=== PATIENT | male | born 1935 | race Caucasian/White ===

== ENCOUNTER 2018-09-15 19:25 | Inpatient (IN) ==
[2018-09-15] MEDS ORDERED: Vancomycin Inj 1,000 MG in Sodium Chlor 0.9% Inj 250 ML IV.SIG ONE ×2 (19:43→23:00)
[2018-09-15] MEDS ORDERED: Piperacil/Tazo 4.5 GM Premix 4.5 GM/100 ML BAG IV.SIG ONE (19:43)
[2018-09-15] MEDS ORDERED: Acetaminophen 325 MG Tablet PO ONE (19:43)
[2018-09-15] MEDS ORDERED: Sod Chloride 0.9% Inj 1,000 ML IV.SIG SCH (19:45)
[2018-09-15] MEDS ORDERED: LORazepam 1 MG Tablet PO ONE (19:57)
[2018-09-15] MEDS ORDERED: diazePAM 2 MG Tablet PO ONE ×2 (19:59→20:36)
--- NOTE | 2018-09-15 20:43 | XR ---
EXAM DATE: 09/15/2018 8:36 PM EST AGE/SEX: 89 years / Male INDICATIONS: Fever. CLINICAL DATA: This is the patient's initial encounter. Patient reports that signs and symptoms have been present for 1 day and indicates a pain score of Nonresponsive. MEDICAL/SURGICAL HISTORY: Non-responsive. Non-responsive. COMPARISON: No prior exams available for comparison. FINDINGS: Ill-defined partially consolidative opacity in the lower lateral left lung causes loss of delineation of a portion of the lateral left hemidiaphragm. The right lung is clear. The heart is normal in size . No evidence of pneumothorax. High riding shoulders bilaterally. CONCLUSION: Probable infiltrate in the lower lateral left lung. Electronically signed by: Isai Elliott MD 09/15/2018 8:42 PM EST
--- NOTE | 2018-09-15 20:44 | ED ---
HPI General Chief complaint: Respiratory Symptoms Stated complaint: Resp Time Seen by Provider: 09/15/18 19:38 Source: family and EMS Mode of arrival: EMS History of Present Illness HPI narrative: Patient is an 83 year old male who comes in due to AMS and hypoxia. Per EMS, patient was at home and found to be hypoxic with an oxygen saturation in the 70s. EMS placed him on CPAP and gave him 2 duonebs. He was hypotensive with EMS and was given a liter of fluids. Patient is awake and alert and has no complaints, however he looks uncomfortable. Patient's says he has had the basal cell carcinoma to his face for the past year. She says that it suddenly got bigger. She says [facility] advised that he go to [facility], but he does not want to go because it is too far away. says that he has been hallucinating, seeing things that are not actually there. Related Data Home Medications Medication Instructions Recorded Confirmed amlodipine 5 mg PO DAILY 09/15/18 09/15/18 donepezil 10 mg PO DAILY 09/15/18 09/15/18 lisinopril-hydrochlorothiazide 1 tab PO DAILY 09/15/18 09/15/18 memantine 7 mg PO BID 09/15/18 09/15/18 Allergies Allergy/AdvReac Type Severity Reaction Status Date / Time No Known Allergies Allergy Verified 09/15/18 19:43 Review of Systems ROS Unobtainable ROS Unobtainable: unobtainable due to mental status PMFSH Social History Social History Second Hand Smoke Exposure: No Smoking Status: Unknown if ever smoked How Often Do You Have a Drink Containing Alcohol: Never Recent Travel in [facility] within the Last 8 Weeks: No Recent Out of Country Travel within the Last 8 Weeks: No Immunization History Tetanus Immunization: Unsure Exam Narrative Exam Narrative: GENERAL: Awake and alert, in moderate respiratory distress. SKIN: Large necrotic mass to the left cheek. HEAD: Atraumatic. Normocephalic. EYES: Pupils equal and round. No scleral icterus. ENT: Mucous membranes pink and moist. NECK: Trachea midline. No JVD. CARDIOVASCULAR: Regular rate and rhythm. No murmur appreciated. RESPIRATORY: No accessory muscle use. Clear to auscultation. Breath sounds equal bilaterally. GASTROINTESTINAL: Abdomen soft, non-tender, nondistended. MUSCULOSKELETAL: No obvious deformities. No clubbing. No cyanosis. Bilateral lower extremity edema. NEUROLOGICAL: Awake and alert. No obvious cranial nerve deficits. Motor grossly within normal limits. Course Initial Documented Vital Signs Temperature 101 F H 09/15/18 19:31 Pulse Rate 113 H 09/15/18 19:31 Respiratory Rate 30 H 09/15/18 19:31 Blood Pressure 135/63 09/15/18 19:31 Pulse Oximetry 87 L 09/15/18 19:31 Last Documented Vital Signs Temperature 99 F 09/15/18 20:01 Pulse Rate 105 H 09/15/18 22:58 Respiratory Rate 34 H 09/15/18 22:58 Blood Pressure 133/60 09/15/18 22:58 Pulse Oximetry 97 09/15/18 22:58 Critical Care Time Critical Care Time: Yes Total Critical Care Time: 40 Attestation: Aggregate critical care time was 40 minutes. Time to perform other separately billable procedures was not included in the critical care time. My time did not include minutes spent treating any other patients simultaneously or on activities that did not directly contribute to the patient's treatment. The services I provided to this patient were to treat and/or prevent clinically significant deterioration that could result in: serious illness or I provided critical care services requiring my management, as noted below: Chart data review, documentation time, medication orders and management, vital sign assessments/reviewing monitor data, ordering and reviewing lab tests, ordering and interpreting/reviewing x-rays and diagnostic studies, care of the patient and discussion of the patient with the admitting physicians. Medical Decision Making [facility] Narrative Medical decision making narrative: Patient is an 83-year-old male who comes in due to altered mental status and respiratory distress. patient appears in moderate respiratory distress on arrival, he is also very anxious and tremulous. IV established, labs sent. Patient given IV fluids. Patient originally continued on BiPAP, however decision made to trial the patient on a nasal cannula. Patient did well on nasal cannula and appears more comfortable. He is maintaining his oxygen saturation above 96%. Given Zosyn and vancomycin. Given 4 mg of Valium to help with anxiety. Labs show no elevated white blood cell count. Lactic acid is elevated. Chest x -ray shows pneumonia. Patient will be admitted to ICU for further management. Medical Screen Exam Complete: Yes Emergency Medical Condition: Yes Differential Diagnosis Differential Diagnosis: Sepsis versus pneumonia versus metastatic cancer Medical Records Medical records reviewed: Yes I reviewed the patient's medical records. Lab Data Lab results reviewed: Yes I reviewed the patient's lab results. Result diagrams: 09/15/18 19:47 09/15/18 19:47 Lab Results 09/15/18 09/15/18 09/15/18 Range/Units 19:47 19:47 19:47 WBC 17.1 H (4.0-11.0) th/mm3 RBC 3.55 L (4.50-5.90) mil/mm3 Hgb 10.7 L (13.0-17.0) gm/dL Hct 32.7 L (39.0-51.0) % MCV 92.0 (80.0-100.0) fL MCH 30.0 (27.0-34.0) pg MCHC 32.6 (32.0-36.0) % RDW 12.7 (11.6-17.2) % Plt Count 269 (150-450) th/mm3 MPV 7.4 (7.0-11.0) fL Neut % (Auto) 86.9 H (16.0-70.0) % Lymph % (Auto) 5.8 L (9.0-44.0) % Mower % (Auto) 6.1 (0.0-8.0) % Eos % (Auto) 0.8 (0.0-4.0) % Baso % (Auto) 0.4 (0.0-2.0) % Neut # (Auto) 14.8 H (1.8-7.7) th/mm3 Lymph # (Auto) 1.0 (1.0-4.8) th/mm3 Mower # (Auto) 1.0 H (0.0-0.9) th/mm3 Eos # (Auto) 0.1 (0.0-0.4) th/mm3 Baso # (Auto) 0.1 (0.0-0.2) th/mm3 WBC Differential . Differential Comment Auto diff final PT 11.7 H (9.8-11.6) sec INR 1.2 Ratio APTT 23.8 (23.4-31.7) sec Sodium 143 (136-145) meq/L Potassium 3.9 (3.5-5.1) meq/L Chloride 107 (98-107) meq/L Carbon Dioxide 29.4 (21.0-32.0) meq/L Anion Gap 7 (5-15) meq/L BUN 43 H (7-18) mg/dL Creatinine 1.21 (0.60-1.30) mg/dL Estimated GFR 52 L (>89) mL/min Random Glucose 85 (74-106) mg/dL Lactic Acid (0.4-2.0) mmol/L Calcium 11.3 H (8.5-10.1) mg/dL Magnesium 2.0 (1.5-2.5) mg/dL Total Bilirubin 0.8 (0.2-1.0) mg/dL AST 22 (15-37) U/L ALT 24 (12-78) U/L Alkaline Phosphatase 62 (45-117) U/L Total Creatine Kinase 112 (39-308) U/L CK-MB (CK-2) 2.6 (0.5-3.6) ng/mL Troponin I Less than 0.02 L (0.02-0.05) ng/mL Total Protein 5.5 L (6.4-8.2) g/dL Albumin 2.3 L (3.4-5.0) g/dL Urine Color (Yellw/Straw) Urine Clarity (Clear) Urine pH (5.0-8.5) Ur Specific [place] (1.002-1.035) Urine Protein (Neg-Trace) mg/dL Urine Glucose (UA) (Negative) mg/dL Urine Ketones (Negative) mg/dL Urine Occult Blood (Negative) Urine Nitrate (Negative) Urine Bilirubin (Negative) Urine Urobilinogen (Less than 2) mg/dL Ur Leukocyte Esterase (Negative) Urine WBC (0-5) /hpf Urine Mucus (Occasional) /lpf Micro UA Comment Ur Microscopic Review Urine Culture Comments 09/15/18 09/15/18 Range/Units 19:47 19:55 WBC (4.0-11.0) th/mm3 RBC (4.50-5.90) mil/mm3 Hgb (13.0-17.0) gm/dL Hct (39.0-51.0) % MCV (80.0-100.0) fL MCH (27.0-34.0) pg MCHC (32.0-36.0) % RDW (11.6-17.2) % Plt Count (150-450) th/mm3 MPV (7.0-11.0) fL Neut % (Auto) (16.0-70.0) % Lymph % (Auto) (9.0-44.0) % Mower % (Auto) (0.0-8.0) % Eos % (Auto) (0.0-4.0) % Baso % (Auto) (0.0-2.0) % Neut # (Auto) (1.8-7.7) th/mm3 Lymph # (Auto) (1.0-4.8) th/mm3 Mower # (Auto) (0.0-0.9) th/mm3 Eos # (Auto) (0.0-0.4) th/mm3 Baso # (Auto) (0.0-0.2) th/mm3 WBC Differential Differential Comment PT (9.8-11.6) sec INR Ratio APTT (23.4-31.7) sec Sodium (136-145) meq/L Potassium (3.5-5.1) meq/L Chloride (98-107) meq/L Carbon Dioxide (21.0-32.0) meq/L Anion Gap (5-15) meq/L BUN (7-18) mg/dL Creatinine (0.60-1.30) mg/dL Estimated GFR (>89) mL/min Random Glucose (74-106) mg/dL Lactic Acid 2.7 H (0.4-2.0) mmol/L Calcium (8.5-10.1) mg/dL Magnesium (1.5-2.5) mg/dL Total Bilirubin (0.2-1.0) mg/dL AST (15-37) U/L ALT (12-78) U/L Alkaline Phosphatase (45-117) U/L Total Creatine Kinase (39-308) U/L CK-MB (CK-2) (0.5-3.6) ng/mL Troponin I (0.02-0.05) ng/mL Total Protein (6.4-8.2) g/dL Albumin (3.4-5.0) g/dL Urine Color Yellow (Yellw/Straw) Urine Clarity Hazy H (Clear) Urine pH 6.0 (5.0-8.5) Ur Specific [place] 1.015 (1.002-1.035) Urine Protein Negative (Neg-Trace) mg/dL Urine Glucose (UA) Negative (Negative) mg/dL Urine Ketones Negative (Negative) mg/dL Urine Occult Blood Negative (Negative) Urine Nitrate Negative (Negative) Urine Bilirubin Negative (Negative) Urine Urobilinogen 2.0 H (Less than 2) mg/dL Ur Leukocyte Esterase Negative (Negative) Urine WBC 2 (0-5) /hpf Urine Mucus Few H (Occasional) /lpf Micro UA Comment Cath-culture not ind Ur Microscopic Review Not Reportable Urine Culture Comments Cath-cult not ind Imaging Data Radiologist's impression: Chest X-Ray 09/15/18 19:43 CONCLUSION: Probable infiltrate in the lower lateral left lung. Chest CTA 09/15/18 20:35 CONCLUSION: 1. The study is negative for central pulmonary embolism. 2. Bilateral lower lobe consolidative infiltrates. Head CT 09/15/18 20:35 CONCLUSION: 1. No acute findings in the brain. 2. Large irregular margin soft tissue mass in the left face measuring in excess of 10 cm. . ECG Data EKG Prior to Arrival: No Attestation: I personally reviewed and interpreted this ECG as follows: Interpretation: ECG shows sinus tachycardia at a rate of 100, no ST elevation, large artifact Discharge Plan Discharge Disposition Patient Disposition: 30 Still Patient Discharge Condition Condition: Stable Discharge Details Diagnosis: Sepsis, Pneumonia Physicians Team ED Provider: Yeny Doyle Primary Care Provider: UNKNOWN, Attending Provider: José Luis Jones Status ED Status: Admitted Patient
[2018-09-15 21:04] LABS: Baso # (Auto) 0.1 th/mm3 (0.0-0.2); Baso % (Auto) 0.4 % (0.0-2.0); Eos # (Auto) 0.1 th/mm3 (0.0-0.4); Eos % (Auto) 0.8 % (0.0-4.0); Hematocrit 32.7 % (39.0-51.0); Hemoglobin 10.7 gm/dL (13.0-17.0); Lymph % (Auto) 5.8 % (9.0-44.0); Mean Corpuscular HGB Conc 32.6 % (32.0-36.0); Mean Platelet Volume 7.4 fL (7.0-11.0); Mono % (Auto) 6.1 % (0.0-8.0); Neut # (Auto) 14.8 th/mm3 (1.8-7.7); Neut % (Auto) 86.9 % (16.0-70.0); Platelet Count 269 th/mm3 (150-450); Red Blood Count 3.55 mil/mm3 (4.50-5.90); Red Cell Distribution Width 12.7 % (11.6-17.2); White Blood Count 17.1 th/mm3 (4.0-11.0)
[2018-09-15 21:17] LABS: Bilirubin,Urine Negative (Negative); Clarity,Urine Hazy (Clear); Color,Urine Yellow (Yellw/Straw); Glucose,Urine (UA) Negative (Negative); Leukocyte Esterase,Urine Negative (Negative); Mucus,Urine Few /lpf (Occasional); Nitrite,Urine Negative (Negative); Specific Gravity,Urine 1.015 (1.002-1.035)
[2018-09-15 21:18] LABS: Albumin 2.3 g/dL (3.4-5.0); Aspartate Aminotransferase 22 U/L (15-37); Blood Urea Nitrogen 43 mg/dL (7-18); Calcium 11.3 mg/dL (8.5-10.1); Carbon Dioxide 29.4 meq/L (21.0-32.0); Glomerular Filtration Rate 52 mL/min (>89); Glucose,Random 85 mg/dL (74-106)
[2018-09-15 21:19] LABS: Activated Partial Thrombo Time 23.8 sec (23.4-31.7); INR 1.2 Ratio; Prothrombin Time 11.7 sec (9.8-11.6)
[2018-09-15 21:20] LABS: Alanine Aminotransferase 24 U/L (12-78)
[2018-09-15 22:31] LABS: Anion Gap 7 meq/L (5-15); Chloride 107 meq/L (98-107); Potassium 3.9 meq/L (3.5-5.1); Sodium 143 meq/L (136-145)
[2018-09-15 22:32] LABS: Alkaline Phosphatase 62 U/L (45-117); Creatine Kinase 112 U/L (39-308); Total Protein 5.5 g/dL (6.4-8.2)
--- NOTE | 2018-09-15 22:39 | CT ---
EXAM DATE: 09/15/2018 10:34 PM EST AGE/SEX: 89 years / Male INDICATIONS: Altered mental status. Growth on left side of face. CLINICAL DATA: This is the patient's initial encounter. Patient reports that signs and symptoms have been present for 1 day and indicates a pain score of Nonresponsive. MEDICAL/SURGICAL HISTORY: Non-responsive. Non-responsive. RADIATION DOSE: 45.23 CTDI (mGy) COMPARISON: No prior exams available for comparison. TECHNIQUE: CT of the head without contrast. Using automated exposure control and adjustment of the mA and/or kV according to patient size, radiation dose was kept as low as reasonably achievable to ob tain optimal diagnostic quality images. DICOM format image data is available electronically for revi ew and comparison. FINDINGS: Cerebrum: The ventricles are normal for age. No evidence of midline shift, mass lesion, hemorrhage or acute infarction. No extraaxial fluid collections are seen. Posterior Fossa: The cerebellum and brainstem are intact. The 4th ventricle is midline. The cerebe llopontine angle is unremarkable. Extracranial: There is a large left facial mass superficial to the mandible and extending to the ext ernal ear which measures 10.9 cm in AP dimension and 4.4 cm in width. This surrounds the external aco ustic meatus but does not extend into the external acoustic meatus. No internal calcification. The la teral margins are fungating and irregular. Skull: The calvaria is intact. No evidence of skull fracture. CONCLUSION: 1. No acute findings in the brain. 2. Large irregular margin soft tissue mass in the left face measuring in excess of 10 cm. . Electronically signed by: Isai Elliott MD 09/15/2018 10:38 PM EST
[2018-09-15 22:47] LABS: Creatine Kinase MB 2.6 ng/mL (0.5-3.6)
--- NOTE | 2018-09-15 23:00 | CT ---
EXAM DATE: 09/15/2018 10:53 PM EST AGE/SEX: 89 years / Male INDICATIONS: Shortness of breath. CLINICAL DATA: This is the patient's initial encounter. Patient reports that signs and symptoms have been present for 1 day and indicates a pain score of Nonresponsive. MEDICAL/SURGICAL HISTORY: Non-responsive. Non-responsive. RADIATION DOSE: 21.05 CTDI (mGy) COMPARISON: No prior exams available for comparison. TECHNIQUE: Volumetric scanning was performed using a multi-row detector CT scanner during bolus infu elizabeth of 74 ml Omnipaque 350 (iohexol) nonionic water-soluble contrast as a single exam dose. The víctor a was post processed with a variety of visualization algorithms including full volume maximum intensi ty projection and sliding thin slab reformation. Using automated exposure control and adjustment of t he mA and/or kV according to patient size, radiation dose was kept as low as reasonably achievable to obtain optimal diagnostic quality images. DICOM format image data is available electronically for r eview and comparison. FINDINGS: Patient motion and metallic lines cause image degradation. The study is still diagnostic f or the central pulmonary arteries. Pulmonary Arteries: No filling defects are seen in the central and first branch pulmonary arteries. The second branch vessels are nondiagnostic due to the artifact. The left and right pulmonary arteri es are normal in diameter. Lung: Multi segmental consolidation in the lower lungs bilaterally. Effusion: None. Mediastinum: No evidence of mediastinal or hilar adenopathy. Coronary artery calcifications. Other: The axilla is unremarkable. CONCLUSION: 1. The study is negative for central pulmonary embolism. 2. Bilateral lower lobe consolidative infiltrates. Electronically signed by: Isai Elliott MD 09/15/2018 10:59 PM EST
[2018-09-15] MEDS ORDERED: Temazepam 15 MG Capsule PO PRN (23:12)
[2018-09-15] MEDS ORDERED: Acetaminophen 325 MG Tablet PO PRN (23:12)
[2018-09-15] MEDS ORDERED: Bisacodyl 10 MG Supp RECTAL PRN (23:12)
[2018-09-15] MEDS ORDERED: Vancomycin Consult Pharmacy OTHER PRN (23:17)
--- NOTE | 2018-09-15 23:19 | P.HPCC ---
History of Present Illness Primary Care Physician: UNKNOWN History of Present Illness: 83 year old male who comes in due to AMS and hypoxia. Per EMS, patient was at home and found to be hypoxic with an oxygen saturation in the 70s. EMS placed him on CPAP and gave him 2 duonebs. He was hypotensive with EMS and was given a liter of i.v. fluids. Patient's says he has had the basal cell carcinoma to his face for the past year. She says that it suddenly got bigger. She says [facility] advised that he go to [facility], but he does not want to go because it is too far away. says that he has been hallucinating, seeing things that are not actually there. Inpatient Certification: I certify that the inpatient services were ordered in accordance with Medicare regulations governing the order. This includes certification that hospital inpatient services are reasonable and necessary and in the case of services not specified as inpatient-only under 42 CFR 419.22(n), that they are appropriately provided as inpatient services in accordance to with the 2-midnight benchmark under 43 CFR 412.3(e) Estimated Total Length of Stay (Days): 5 Plans for Post Hospital Care: Not yet determined Review of Systems unobtainable due to mental condition PMFSH - History History Provided By: Cork Slabs Sawyer / EMT - Tobacco History Second Hand Smoke Exposure: No Smoking Status: Unknown if ever smoked - Alcohol History How Often Do You Have a Drink Containing Alcohol: Never - Travel History Recent Travel in the [place] Within the Last 8 Weeks: No Recent Travel Out of the Country Within the Last 8 Weeks: No - Immunization History Tetanus Immunization: Unsure Medications and Allergies Active Medications: Active Medications Acetaminophen (Tylenol) 650 mg PO Q6H PRN PRN Reason: PAIN 1-10 AND/OR FEVER >101F Al Hydroxide/Mg Hydroxide (Milk Of Magnfay Liq) 30 ml PO Q12H PRN PRN Reason: Mild Constipation Albuterol (Duoneb Neb (Prn)) 1 ampul NEB Q2HR NEB PRN PRN Reason: WHEEZING Amlodipine Besylate (Norvasc) 5 mg PO DAILY DAREN Bisacodyl (Dulcolax Supp) 10 mg RECTAL DAILY PRN PRN Reason: SEVERE CONSITIPATION Chlorhexidine Gluconate (Chlorhexidine 2% Cloth) 3 pack TOPICAL DAILY@0400 [facility] Stop: 09/21/18 03:59 Chlorhexidine Gluconate (Chlorhexidine 2% Cloth) 3 pack TOPICAL DAILY@0400 PRN PRN Reason: Extra cloth needed Stop: 09/21/18 03:59 Donepezil HCl (Aricept) 10 mg PO DAILY [facility] Famotidine (Pepcid Pf Inj) 20 mg IV.PUSH Q12HR [facility] Heparin Sodium (Porcine) (Heparin Inj) 5,000 units SQ Q8H [facility] Hydrochlorothiazide (Hydrodiuril) 25 mg PO DAILY [facility] Hydromorphone HCl (Dilaudid Pf Inj) 1 mg IV.PUSH Q4H PRN PRN Reason: PAIN SCALE 6 TO 10 Sodium Chloride (Ns Inj) 1,000 mls @ 0 mls/hr IV.SIG .Q0M [facility] Last Admin: 09/15/18 20:02 Dose: 2,400 mls/hr Sodium Chloride (Ns Inj) 1,000 mls @ 184 mls/hr IV.CONT .Q5H27M [facility] Lactulose (Lactulose Liq) 30 ml PO DAILY PRN PRN Reason: SEVERE CONSITIPATION Lisinopril (Prinivil) 20 mg PO DAILY [facility] Ondansetron HCl (Zofran Inj) 4 mg IV.PUSH Q6H PRN PRN Reason: NAUSEA OR VOMITING Pt Own Memantine 7 (Mg Xr Tablet) 1 each PO BID [facility] Senna/Docusate Sodium (Ashlyn-Colace) 1 tab PO BID [facility] Sennosides (Senokot) 17.2 mg PO Q12H PRN PRN Reason: Moderate Constipation Sodium Chloride (Ns Flush) 2 ml IV.FLUSH BID [facility] Sodium Chloride (Ns Flush) 2 ml IV.FLUSH PRN PRN PRN Reason: FLUSH AFTER USING IV ACCESS Temazepam (Restoril) 15 mg PO HS PRN PRN Reason: INSOMNIA Allergies Allergy/AdvReac Type Severity Reaction Status Date / Time No Known Allergies Allergy Verified 09/15/18 19:43 Home Medications Medication Instructions Recorded Confirmed Type amlodipine 5 mg PO DAILY 09/15/18 09/15/18 History donepezil 10 mg PO DAILY 09/15/18 09/15/18 History lisinopril-hydrochlorothiazide 1 tab PO DAILY 09/15/18 09/15/18 History memantine 7 mg PO BID 09/15/18 09/15/18 History Results - Labs CBC & Chem 7: 09/15/18 19:47 09/15/18 19:47 Labs: Short CBC 09/15/18 Range/Units 19:47 WBC 17.1 H (4.0-11.0) th/mm3 Hgb 10.7 L (13.0-17.0) gm/dL Hct 32.7 L (39.0-51.0) % Plt Count 269 (150-450) th/mm3 BMP 09/15/18 19:47 Sodium 143 Potassium 3.9 Chloride 107 Carbon Dioxide 29.4 BUN 43 H Creatinine 1.21 Calcium 11.3 H Cardiac Enzymes 09/15/18 Range/Units 19:47 Total Creatine Kinase 112 (39-308) U/L CK-MB (CK-2) 2.6 (0.5-3.6) ng/mL Troponin I Less than 0.02 L (0.02-0.05) ng/mL Liver Function 09/15/18 Range/Units 19:47 Total Bilirubin 0.8 (0.2-1.0) mg/dL AST 22 (15-37) U/L ALT 24 (12-78) U/L Alkaline Phosphatase 62 (45-117) U/L Albumin 2.3 L (3.4-5.0) g/dL Urine 09/15/18 Range/Units 19:55 Urine Color Yellow (Yellw/Straw) Urine Clarity Hazy H (Clear) Urine pH 6.0 (5.0-8.5) Ur Specific [place] 1.015 (1.002-1.035) Urine Protein Negative (Neg-Trace) mg/dL Urine Glucose (UA) Negative (Negative) mg/dL - Imaging Impressions Chest X-Ray 09/15/18 19:43 CONCLUSION: Probable infiltrate in the lower lateral left lung. Chest CTA 09/15/18 20:35 CONCLUSION: 1. The study is negative for central pulmonary embolism. 2. Bilateral lower lobe consolidative infiltrates. Head CT 09/15/18 20:35 CONCLUSION: 1. No acute findings in the brain. 2. Large irregular margin soft tissue mass in the left face measuring in excess of 10 cm. . Exam Vital signs: Vital Signs 09/15/18 19:31 09/15/18 19:35 09/15/18 19:38 Temperature 101 F H Pulse Rate 113 H 104 H Respiratory Rate 30 H 30 H Blood Pressure 135/63 Pulse Oximetry 87 L 96 99 09/15/18 19:50 09/15/18 20:01 09/15/18 20:59 Temperature 99 F Pulse Rate 94 H 104 H Respiratory Rate 28 H 32 H Blood Pressure 139/64 Pulse Oximetry 97 09/15/18 21:00 09/15/18 22:58 Temperature Pulse Rate 105 H Respiratory Rate 34 H Blood Pressure 133/60 Pulse Oximetry 98 97 Intake & Output 09/15/18 09/15/18 09/16/18 06:59 18:59 06:59 Intake Total 100 / 100 Balance 100 / 100 Weight 79.379 kg Intake: IV 100 / 100 Zosyn 4.5 GM Premix 4.5 gm In 100 / 100 100 ml @ 200 mls/hr IV.SIG ONCE ONE Rx#:[id number] - Constitutional mild distress - Routine HEENT Exam Head: Present: facial swelling Eye: Present: PERRL ENT: Present: mucous membranes moist Comments: Large irregular margin soft tissue mass in the left face measuring in excess of 10 cm. - Routine Neck Exam Present: supple, full ROM. Absent: JVD, carotid bruit - Routine Respiratory Exam Present: rhonchi, crackles. Absent: accessory muscle use, stridor, wheezes - Routine Cardiovascular Exam Present: RRR, S1, S2 - Routine Abdominal Exam Present: soft, normoactive bowel sounds. Absent: tenderness, distended - Routine Extremities Exam Absent: cyanosis, clubbing, edema - Routine Skin Exam Present: intact. Absent: cyanosis, erythema - Routine Neurological Exam Present: altered mental status Septic Shock Reassessment Septic shock perfusion: reassessment completed Caprini VTE Risk Assessment Caprini VTE Risk Assessment: Moderate/High Risk (score >= 2) Caprini Risk Assessment Model: Point Value = 1 Point Value = 2 Point Value = 3 Point Value = 5 Age 41-60 Minor surgery BMI > 25 kg/m2 Swollen legs Varicose veins or History of unexplained or recurrent spontaneous Oral contraceptives or hormone replacement Sepsis (< 1 month) Serious lung disease, including pneumonia (< 1 month) Abnormal pulmonary function Acute myocardial infarction Congestive heart failure (< 1 month) History of inflammatory bowel disease Medical patient at bed rest Age 61-74 Arthroscopic surgery Major open surgery (> 45 min) Laparoscopic surgery (> 45 min) Malignancy Confined to bed (> 72 hours) Immobilizing plaster cast Central venous access Age >= 75 History of VTE Family history of VTE Factor V Leiden Prothrombin [id number] Lupus anticoagulant Anticardiolipin antibodies Elevated serum homocysteine Heparin-induced thrombocytopenia Other congenital or acquired thrombophilia Stroke (< 1 month) Elective arthroplasty Hip, pelvis, or leg fracture Acute spinal cord injury (< 1 month) Prophylaxis Regimen: Total Risk Factor Score Risk Level Prophylaxis Regimen 0-1 Low Early ambulation 2 Moderate Order ONE of the following: *Sequential Compression Device (SCD) *Heparin 5000 units SQ BID 3-4 Higher Order ONE of the following medications: *Heparin 5000 units SQ TID *Enoxaparin/Lovenox 40 mg SQ daily (WT < 150 kg, CrCl > 30 mL/min) *Enoxaparin/Lovenox 30 mg SQ daily (WT < 150 kg, CrCl > 10-29 mL/min) *Enoxaparin/Lovenox 30 mg SQ BID (WT < 150 kg, CrCl > 30 mL/min) AND/OR *Sequential Compression Device (SCD) 5 or more Highest Order ONE of the following medications: *Heparin 5000 units SQ TID (Preferred with Epidurals) *Enoxaparin/Lovenox 40 mg SQ daily (WT < 150 kg, CrCl > 30 mL/min) *Enoxaparin/Lovenox 30 mg SQ daily (WT < 150 kg, CrCl > 10-29 mL/min) *Enoxaparin/Lovenox 30 mg SQ BID (WT < 150 kg, CrCl > 30 mL/min) AND *Sequential Compression Device (SCD) Assessment and Plan - Assessment and Plan Plan: Respiratory failure -Pneumonia on the CT -CTA negative for PE -Broad-spectrum antibiotic -De-escalate per sensitivity and cultures -DuoNeb's as needed Hypertension -Norvasc -Hydrochlorothiazide -Lisinopril Basal cell carcinoma -Supportive care Dementia -Aricept -Memantine DVT GI prophylaxis -Teds SCDs -Subcu heparin -Pepcid Level 2
[2018-09-16] MEDS: Heparin - SQ 10,000 UNITS/ML Vial SQ SCH ×4 (00:14→21:48)
[2018-09-16] MEDS: HYDROmorphone PF Inj 1 MG/ML Ampul IV.PUSH PRN (01:48)
[2018-09-16] MEDS: Sod Chloride 0.9% Inj 1,000 ML IV.CONT SCH ×5 (01:48→15:51)
[2018-09-16] MEDS: Piperacil/Tazo 4.5 GM Premix 4.5 GM/100 ML BAG IV.SIG SCH ×4 (01:48→21:49)
[2018-09-16] MEDS: Chlorhexidine Gluconate 2% 1 Pack (2 Cloths) TOPICAL SCH (03:50)
[2018-09-16] MEDS ORDERED: Chlorhexidine Gluconate 2% 1 Pack (2 Cloths) TOPICAL PRN (04:00)
[2018-09-16 05:00] LABS: Baso # (Auto) 0.1 th/mm3 (0.0-0.2); Baso % (Auto) 0.6 % (0.0-2.0); Eos % (Auto) 0.2 % (0.0-4.0); Hematocrit 27.5 % (39.0-51.0); Hemoglobin 9.4 gm/dL (13.0-17.0); Lymph # (Auto) 0.6 th/mm3 (1.0-4.8); Lymph % (Auto) 3.3 % (9.0-44.0); Mean Corpuscular HGB Conc 34.1 % (32.0-36.0); Mean Corpuscular Hemoglobin 31.3 pg (27.0-34.0); Mean Corpuscular Volume 91.9 fL (80.0-100.0); Mean Platelet Volume 6.7 fL (7.0-11.0); Mono # (Auto) 0.8 th/mm3 (0.0-0.9); Mono % (Auto) 4.3 % (0.0-8.0); Neut # (Auto) 16.3 th/mm3 (1.8-7.7); Neut % (Auto) 91.6 % (16.0-70.0); Platelet Count 220 th/mm3 (150-450); Red Blood Count 2.99 mil/mm3 (4.50-5.90); White Blood Count 17.8 th/mm3 (4.0-11.0)
[2018-09-16 05:07] LABS: Activated Partial Thrombo Time 40.6 sec (23.4-31.7); INR 1.2 Ratio; Prothrombin Time 12.6 sec (9.8-11.6)
[2018-09-16 05:34] LABS: Alanine Aminotransferase 21 U/L (12-78); Albumin 1.8 g/dL (3.4-5.0); Alkaline Phosphatase 47 U/L (45-117); Anion Gap 8 meq/L (5-15); Aspartate Aminotransferase 23 U/L (15-37); Blood Urea Nitrogen 40 mg/dL (7-18); Calcium 9.9 mg/dL (8.5-10.1); Carbon Dioxide 25.4 meq/L (21.0-32.0); Chloride 111 meq/L (98-107); Glomerular Filtration Rate 61 mL/min (>89); Glucose,Random 83 mg/dL (74-106); Phosphorus 2.7 mg/dL (2.5-4.9); Potassium 3.5 meq/L (3.5-5.1); Sodium 144 meq/L (136-145); Total Protein 4.6 g/dL (6.4-8.2)
--- NOTE | 2018-09-16 08:39 | P.PNCC ---
Subjective Subjective Remarks/Hospital Course: 83 year old male who comes in due to AMS and hypoxia. Per EMS, patient was at home and found to be hypoxic with an oxygen saturation in the 70s. EMS placed him on CPAP and gave him 2 duonebs. He was hypotensive with EMS and was given a liter of i.v. fluids. Patient's says he has had the basal cell carcinoma to his face for the past year. She says that it suddenly got bigger. She says [facility] advised that he go to [facility], but he does not want to go because it is too far away. says that he has been hallucinating, seeing things that are not actually there. SUBJECTIVE: 09/16: Patient is agitated this a.m. He received lorazepam overnight. Leukocytosis persists. CT brain revealed no acute intracranial findings. Soft tissue mass left side of face which is currently fungating/purulent drainage. Currently on piperacillin/tazobactam and vancomycin. Objective Vital Signs / I&O: Vital Signs 09/15/18 19:31 09/15/18 19:35 09/15/18 19:38 Temperature 101 F H Pulse Rate 113 H 104 H Respiratory Rate 30 H 30 H Blood Pressure 135/63 Pulse Oximetry 87 L 96 99 09/15/18 19:50 09/15/18 20:01 09/15/18 20:59 Temperature 99 F Pulse Rate 94 H 104 H Respiratory Rate 28 H 32 H Blood Pressure 139/64 Pulse Oximetry 97 09/15/18 21:00 09/15/18 22:58 09/16/18 00:00 Temperature Pulse Rate 105 H 106 H Respiratory Rate 34 H 38 H Blood Pressure 133/60 130/68 Pulse Oximetry 98 97 97 09/16/18 02:00 09/16/18 03:00 09/16/18 04:00 Temperature 99.7 F H 98.5 F Pulse Rate 92 H 64 85 Respiratory Rate 34 H 32 H 32 H Blood Pressure 116/58 L 119/57 L 105/55 L Pulse Oximetry 97 97 98 09/16/18 06:48 09/16/18 06:49 09/16/18 07:00 Temperature Pulse Rate 82 101 H 149 H Respiratory Rate 37 H 45 H 44 H Blood Pressure 124/62 152/91 H Pulse Oximetry 97 85 L 81 L 09/16/18 07:16 Temperature Pulse Rate 101 H Respiratory Rate 40 H Blood Pressure 203/121 H Pulse Oximetry 90 L Intake & Output 09/15/18 09/16/18 09/16/18 18:59 06:59 18:59 Intake Total 1100 / 1100 100 / 100 Output Total 475 / 475 Balance 625 / 625 100 / 100 Weight 72.1 kg Intake: IV 1100 / 1100 100 / 100 NS Inj 1,000 ML @ 184 mls/hr IV 1000 / 1000 .CONT .Q5H27M [facility] Rx#:[id number] Zosyn 4.5 GM Premix 4.5 gm In 100 / 100 100 / 100 100 ml @ 200 mls/hr IV.SIG Q6H [facility] Rx#:[id number] Output: Urine Amount (Catheter) 475 / 475 Indwelling Urethral Catheter 475 / 475 Other: Date of Last Bowel Movement 09/16/18 # Bowel Movements 1 # Incontinent Bowel Movements 1 Weight On Admission 73.1 kg Result Diagrams: 09/16/18 04:50 09/16/18 04:50 Imaging: Chest X-Ray 09/15/18 19:43 CONCLUSION: Probable infiltrate in the lower lateral left lung. Chest CTA 09/15/18 20:35 CONCLUSION: 1. The study is negative for central pulmonary embolism. 2. Bilateral lower lobe consolidative infiltrates. Head CT 09/15/18 20:35 CONCLUSION: 1. No acute findings in the brain. 2. Large irregular margin soft tissue mass in the left face measuring in excess of 10 cm. . Objective Remarks: GENERAL: This is a 83-year-old male currently resting in bed in mild distress SKIN: Warm and dry. Large fungating mass on left side of face HEAD: Atraumatic. Normocephalic. EYES: Pupils equal and round. No scleral icterus. No injection or drainage. ENT: No nasal bleeding or discharge. Mucous membranes pink and moist. NECK: Trachea midline. No JVD. CARDIOVASCULAR: rrr. S1, S2. No S4.. RESPIRATORY: Few coarse rhonchorous breath sounds at bases. GASTROINTESTINAL: Abdomen soft, non-tender, nondistended. Hepatic and splenic margins not palpable. MUSCULOSKELETAL: Extremities without significant peripheral edema. No obvious deformities. NEUROLOGICAL: Awake and alert. No obvious cranial nerve deficits. Motor grossly within normal limits. Five out of 5 muscle strength in the arms and legs. Normal speech. Assessment and Plan - Assessment and Plan Plan: Neuro/Psych: Dementia disorder NOS Continue memantine 7 mg twice daily and donepezil 10 mg daily for dementia Acetaminophen 650 mg by mouth p.o. every 6 hours as needed fever/pain 1-10 Hydromorphone 1 mg IV every 4 hours as needed breakthrough pain CT brain revealed no acute intracranial findings. Large 10 cm left mass of her face. CV: Sinus tachycardia Lactic acidosis resolved Essential hypertension Home medications are lisinopril 20 mg daily and hydrochlorothiazide 25 mg daily and amlodipine 5 mg daily. Lisinopril and hydrochlorothiazide currently on hold in light of hypotension. Discontinue IV fluids As needed labetalol/hydralazine for hypertension Resp: Community acquired pneumonia Nasal cannula to maintain saturations greater than or equal to 92% Incentive spirometry while awake Head of bed at 30 degrees Albuterol/ipratropium aerosols every 4 hours with albuterol aerosols every 2 hours as needed dyspnea Lung hyperinflation protocol EzPap with aerosols every [address] pulmonary angiogram revealed no central pulmonary embolus. Bilateral lower lobe infiltrates. GI: N.p.o. status. Swallow evaluation pending Pantoprazole for GI prophylaxis Docusate sodium/senna 1 tablet twice daily for bowel regimen : Straight catheterization as needed Endo: Sliding scale insulin Accu-Cheks to maintain euglycemia every 6 hours/low regimen aspart insulin Check TSH Renal: Creatinine currently within normal limits Monitor urine Accurate I's and O's Heme: Leukocytosis Basal cell carcinoma of the face Monitor CBC daily. Follow trends. Check coags Care evaluate face ID: Community acquired pneumonia Possibly infected basal cell carcinoma Vancomycin, piperacillin/tazobactam day #2 Blood cultures x2 pending Sputum/UA, influenza A/B, urine Legionella pneumococcal antigen pending MSK: Physical therapy evaluate and treat FEN: Replace electrolytes as clinically indicated per ICU electrolyte protocol Access -Utilize peripheral IV. Central line if indicated Prophylaxis -GI -pantoprazole -DVT-SCD/heparin subcu Level 2 follow-up. Stable from critical care medicine standpoint. Assign care to hospitalist in a.m. 09/17.
[2018-09-16] MEDS ORDERED: Famotidine PF Inj 20 MG/2 ML Vial IV.PUSH SCH (09:00)
[2018-09-16] MEDS ORDERED: MEMANTINE 7 MG PO SCH (09:00)
[2018-09-16] MEDS ORDERED: hydroCHLOROthiazide 25 MG Tablet PO SCH (09:00)
[2018-09-16] MEDS ORDERED: Lisinopril 20 MG Tablet PO SCH (09:00)
[2018-09-16] MEDS ORDERED: amLODIPine 5 MG Tablet PO SCH ×2 (09:00→16:51)
[2018-09-16] MEDS ORDERED: Potassium Chlor 20 mEq Premix 20 MEQ/100 ML PIGGYBACK IV.SIG PRN ×2 (09:02)
[2018-09-16] MEDS ORDERED: Magnesium Oxide 400 MG Tablet PO PRN (09:02)
[2018-09-16] MEDS ORDERED: Magnesium Sulfate Inj 4 GM in Sodium Chlor 0.9% Inj 92 ML IV.SIG PRN (09:02)
[2018-09-16] MEDS ORDERED: Potassium Phosphate Inj 30 MMOL in Sodium Chlor 0.9% Inj 250 ML IV.SIG PRN (09:02)
[2018-09-16] MEDS ORDERED: Potassium Chloride 25 MEQ Effervescent Tablet PO PRN (09:02)
[2018-09-16] MEDS ORDERED: Potassium Phosphate 500 MG Soluble Tablet PO PRN ×2 (09:02)
[2018-09-16] MEDS ORDERED: Potassium Chlor 40 mEq Premix 40 MEQ/100 ML PIGGYBACK IV.SIG PRN ×2 (09:02)
[2018-09-16] MEDS ORDERED: Magnesium Sulfate Inj 2 GM in Sodium Chlor 0.9% Inj 96 ML IV.SIG PRN (09:02)
[2018-09-16] MEDS ORDERED: Sodium Phosphate Inj 30 MMOL in Sodium Chlor 0.9% Inj 250 ML IV.SIG PRN (09:02)
[2018-09-16] MEDS ORDERED: Dextrose 50% in Water 50 ML Vial IV.PUSH PRN (09:03)
[2018-09-16] MEDS ORDERED: Labetalol HCl Inj 100 MG/20 ML Vial IV.PUSH PRN (09:05)
[2018-09-16] MEDS ORDERED: hydrALAZINE HCl Inj 20 MG/ML Vial IV.PUSH PRN (09:05)
[2018-09-16] MEDS: Senna/Docusate Sodium 8.6/50 MG Tablet PO SCH ×2 (09:31→21:49)
[2018-09-16] MEDS: Insulin NovoLOG Aspart Correctional Sugar Inj SQ SCH ×2 (12:49→17:32)
[2018-09-16 13:59] LABS: Bacteria,Urine Rare /hpf; Bilirubin,Urine Negative (Negative); Clarity,Urine Cloudy (Clear); Color,Urine Yellow (Yellw/Straw); Glucose,Urine (UA) Negative (Negative); Leukocyte Esterase,Urine Large (Negative); Mucus,Urine Few /lpf (Occasional); Nitrite,Urine Negative (Negative); Specific Gravity,Urine 1.027 (1.002-1.035); Squamous Epithelial Cell,Urine 1 /hpf (0-5); Uric Acid Crystals,Urine Occasional /hpf
--- NOTE | 2018-09-16 14:30 | ECG ---
Date Performed: 09/15/2018 Time Performed: 19:41:12 PTAGE: 89 years EKG: SINUS TACHYCARDIA NONSPECIFIC T-WAVE ABNORMALITY ABNORMAL RHYTHM ECG NO PREVIOUS TRACING DOCTOR: Luis Felipe Castro Interpretating Date/Time 09/16/2018 14:30:07
[2018-09-16] MEDS: Pantoprazole Inj 40 MG Vial IV.PUSH SCH (17:32)
[2018-09-16] MEDS: Dextrose 5%/NaCl 0.45% Inj 1,000 ML IV.CONT SCH (17:40)
[2018-09-16] MEDS ORDERED: Gadobutrol PF 7.5 MMOL/7.5 ML Vial (for RAD) IV.SIG ONE (18:48)
--- NOTE | 2018-09-16 19:29 | MR ---
EXAM DATE: 09/16/2018 7:12 PM EST AGE/SEX: 83 years / Male INDICATIONS: Basal cell carcinoma. CLINICAL DATA: This is the patient's initial encounter. Patient reports that signs and symptoms have been present for 1 day and indicates a pain score of 0/10. MEDICAL/SURGICAL HISTORY: Hypertension. . Leg surgery. COMPARISON: No prior exams available for comparison. TECHNIQUE: Multi-weighted, multi-axial MR images of the facial soft tissue before and after the admi nistration of 7 ml Gadavist (gadobutrol) contrast as a single exam dose. FINDINGS: There is a large infiltrating mass in the left face which measures 11 cm in AP dimension, 11.1 cm in superior/inferior extent and is characterized by T1 prolongation and intermediate signal on T2. On th e postcontrast images, there is a heterogeneous pattern of moderate enhancement. The mass extends int o the subcutaneous tissues of the left maxillary region back into the pinna of the left ear. There i s evidence of deep soft tissue invasion around the the mandibular condyle and ramus with enhancing ti ssue surrounding the ramus and on the deep side of the mandible. Enhancing tissue is also seen within the external acoustic canal. There is also invasion into the parotid gland. No invasion of the temporal bone. The zygomatic arch appears intact. There is questionable extension into the medial pterygoid muscle with some loss of delineation of the muscle fascicles and muscle fito ma. CONCLUSION: 1. Large fungating tumor in the left face with evidence of deep soft tissue extension around the man dibular condyle and ramus, involvement of the left parotid, extension into the external acoustic santos l, and possible involvement of the medial pterygoid muscle. Electronically signed by: Isai Elliott MD 09/16/2018 7:27 PM EST
[2018-09-17] MEDS: Vancomycin Inj 1,250 MG in Sodium Chlor 0.9% Inj 250 ML IV.SIG SCH ×2 (01:00→23:54)
[2018-09-17] MEDS: Insulin NovoLOG Aspart Correctional Sugar Inj SQ SCH ×4 (01:00→17:21)
[2018-09-17] MEDS: HYDROmorphone PF Inj 1 MG/ML Ampul IV.PUSH PRN (02:14)
[2018-09-17] MEDS: Piperacil/Tazo 4.5 GM Premix 4.5 GM/100 ML BAG IV.SIG SCH ×4 (02:15→19:38)
[2018-09-17 04:07] LABS: Baso # (Auto) 0.1 th/mm3 (0.0-0.2); Baso % (Auto) 0.5 % (0.0-2.0); Eos # (Auto) 0.1 th/mm3 (0.0-0.4); Eos % (Auto) 0.7 % (0.0-4.0); Hematocrit 28.9 % (39.0-51.0); Hemoglobin 9.7 gm/dL (13.0-17.0); Lymph # (Auto) 0.9 th/mm3 (1.0-4.8); Mean Corpuscular HGB Conc 33.7 % (32.0-36.0); Mean Corpuscular Volume 92.1 fL (80.0-100.0); Mean Platelet Volume 6.7 fL (7.0-11.0); Mono % (Auto) 5.6 % (0.0-8.0); Neut % (Auto) 88.2 % (16.0-70.0); Platelet Count 215 th/mm3 (150-450); Red Blood Count 3.14 mil/mm3 (4.50-5.90); Red Cell Distribution Width 13.1 % (11.6-17.2)
[2018-09-17 04:18] LABS: Alanine Aminotransferase 23 U/L (12-78); Albumin 1.8 g/dL (3.4-5.0); Anion Gap 7 meq/L (5-15); Aspartate Aminotransferase 29 U/L (15-37); Blood Urea Nitrogen 31 mg/dL (7-18); Carbon Dioxide 25.5 meq/L (21.0-32.0); Chloride 113 meq/L (98-107); Glomerular Filtration Rate 72 mL/min (>89); Glucose,Random 90 mg/dL (74-106); Phosphorus 2.4 mg/dL (2.5-4.9); Potassium 3.3 meq/L (3.5-5.1); Sodium 145 meq/L (136-145)
[2018-09-17 04:19] LABS: Alkaline Phosphatase 45 U/L (45-117); Total Protein 4.8 g/dL (6.4-8.2)
[2018-09-17 04:22] LABS: INR 1.2 Ratio
[2018-09-17] MEDS: Chlorhexidine Gluconate 2% 1 Pack (2 Cloths) TOPICAL SCH (05:32)
[2018-09-17] MEDS: Heparin - SQ 10,000 UNITS/ML Vial SQ SCH ×3 (05:33→21:57)
--- NOTE | 2018-09-17 07:42 | P.PNIM ---
Subjective Interval history: f/u; pneumonia in no acute distress. at times agitated. afebrile. d/w the RN and RT at the bedside. Physical Exam Vital signs: Vital Signs 09/16/18 08:00 09/16/18 08:09 09/16/18 09:00 Temperature 98.5 F Pulse Rate 111 H 118 H 99 H Respiratory Rate 38 H 56 H 102 H Blood Pressure 149/70 H 146/64 H Pulse Oximetry 91 L 88 L 98 09/16/18 10:00 09/16/18 11:00 09/16/18 11:01 Temperature Pulse Rate 92 H 63 60 Respiratory Rate 36 H 52 H 27 H Blood Pressure 145/85 H 115/55 L Pulse Oximetry 97 94 L 94 L 09/16/18 11:02 09/16/18 11:05 09/16/18 12:00 Temperature Pulse Rate 73 77 Respiratory Rate 22 73 H Blood Pressure Pulse Oximetry 97 94 L 09/16/18 12:01 09/16/18 13:00 09/16/18 13:01 Temperature 98.4 F Pulse Rate 69 56 L 54 L Respiratory Rate 87 H 93 H 96 H Blood Pressure 142/62 H 112/55 L Pulse Oximetry 94 L 97 98 09/16/18 14:00 09/16/18 15:00 09/16/18 15:56 Temperature Pulse Rate 79 86 84 Respiratory Rate 107 H 91 H 24 Blood Pressure 126/58 L 128/59 L Pulse Oximetry 93 L 97 09/16/18 16:00 09/16/18 16:01 09/16/18 17:00 Temperature 98.5 F Pulse Rate 74 79 79 Respiratory Rate 162 H 182 H 85 H Blood Pressure 155/65 H Pulse Oximetry 87 L 85 L 87 L 09/16/18 17:01 09/16/18 18:00 09/16/18 18:01 Temperature Pulse Rate 85 64 82 Respiratory Rate 88 H 102 H 86 H Blood Pressure 137/61 116/55 L Pulse Oximetry 86 L 100 97 09/16/18 19:41 09/16/18 20:00 09/16/18 22:00 Temperature 98.7 F Pulse Rate 84 83 83 Respiratory Rate 20 18 Blood Pressure 137/63 Pulse Oximetry 96 100 09/17/18 00:00 09/17/18 00:27 09/17/18 02:00 Temperature 98.5 F Pulse Rate 73 54 L 80 Respiratory Rate 17 20 Blood Pressure 132/63 Pulse Oximetry 100 09/17/18 02:44 09/17/18 03:41 09/17/18 04:00 Temperature 98.7 F Pulse Rate 50 L 50 L Respiratory Rate 16 20 16 Blood Pressure 120/60 Pulse Oximetry 100 09/17/18 06:00 09/17/18 07:27 09/17/18 07:34 Temperature Pulse Rate 48 L 49 L Respiratory Rate 24 Blood Pressure Pulse Oximetry 97 Intake & Output 09/16/18 09/17/18 09/17/18 18:59 06:59 18:59 Intake Total 3274 / 3274 462.5 / 462.5 Output Total 1000 / 1000 1100 / 1100 Balance 2274 / 2274 -637.5 / -637.5 Weight 72.4 kg Intake: IV 3274 / 3274 462.5 / 462.5 NS Inj 1,000 ML @ 184 mls/hr IV 2474 / 2474 .CONT .Q5H27M [facility] Rx#:[id number] Zosyn 4.5 GM Premix 4.5 gm In 300 / 300 200 / 200 100 ml @ 200 mls/hr IV.SIG Q6H [facility] Rx#:[id number] Vancomycin Inj 1,000 MG In NS 250 / 250 Inj 250 ML @ 250 mls/hr IV.SIG ONCE ONE Rx#:[id number] Vancomycin Inj 1,250 MG In NS 262.5 / 262.5 Inj 250 ML @ 250 mls/hr IV.SIG Q24H [facility] Rx#:[id number] Output: Urine Amount (Catheter) 1000 / 1000 1100 / 1100 Indwelling Urethral Catheter 1000 / 1000 1100 / 1100 Other: Date of Last Bowel Movement 09/16/18 09/17/18 # Bowel Movements 1 1 # Incontinent Bowel Movements 1 - Constitutional no acute distress - Routine Respiratory Exam Present: CTA bilaterally - Routine Cardiovascular Exam Present: RRR - Routine Abdominal Exam Present: soft - Routine Extremities Exam Comments: bilateral pedal edema. - Routine Skin Exam Present: wounds (noted on the left face.) - Routine Neurological Exam Present: alert - Urinary Catheter Management Indwelling Urethral Catheter Cath placed during this visit: yes Reason for continuing: Hourly intake/output Insertion date: 09/15/18 Insertion time: 20:02 Results - Labs CBC & Chem 7: 09/17/18 03:51 09/17/18 03:51 Laboratory Results - last 24 hr 09/16/18 09/16/18 09/16/18 11:35 12:12 17:28 WBC RBC Hgb Hct MCV MCH MCHC RDW Plt Count MPV Neut % (Auto) Lymph % (Auto) [place] % (Auto) Eos % (Auto) Baso % (Auto) Neut # (Auto) Lymph # (Auto) [place] # (Auto) Eos # (Auto) Baso # (Auto) WBC Differential Differential Comment PT INR APTT Sodium Potassium Chloride Carbon Dioxide Anion Gap BUN Creatinine Estimated GFR POC Glucose 83 64 L Random Glucose Lactic Acid Calcium Phosphorus Magnesium Total Bilirubin AST ALT Alkaline Phosphatase Total Protein Albumin TSH Urine Color Yellow Urine Clarity Cloudy H Urine pH 5.0 Ur Specific [place] 1.027 Urine Protein 30 H Urine Glucose (UA) Negative Urine Ketones Negative Urine Occult Blood Large H Urine Nitrate Negative Urine Bilirubin Negative Urine Urobilinogen Less than 2 Ur Leukocyte Esterase Large H Urine RBC Urine WBC 71 H Urine WBC Clumps Occasional H Ur Squamous Epith Cells 1 Uric Acid Crystals Occasional H Urine Bacteria Rare H Urine Mucus Few H Urine Yeast Occasional H Micro UA Comment Cath-culture ind Ur Microscopic Review Not Reportable Urine Culture Comments Cath-cult indicated 09/16/18 09/17/18 09/17/18 17:39 00:58 03:51 WBC 17.0 H RBC 3.14 L Hgb 9.7 L Hct 28.9 L MCV 92.1 MCH 31.0 MCHC 33.7 RDW 13.1 Plt Count 215 MPV 6.7 L Neut % (Auto) 88.2 H Lymph % (Auto) 5.0 L [place] % (Auto) 5.6 Eos % (Auto) 0.7 Baso % (Auto) 0.5 Neut # (Auto) 15.0 H Lymph # (Auto) 0.9 L [place] # (Auto) 1.0 H Eos # (Auto) 0.1 Baso # (Auto) 0.1 WBC Differential . Differential Comment Auto diff final PT INR APTT Sodium Potassium Chloride Carbon Dioxide Anion Gap BUN Creatinine Estimated GFR POC Glucose 202 H 98 Random Glucose Lactic Acid Calcium Phosphorus Magnesium Total Bilirubin AST ALT Alkaline Phosphatase Total Protein Albumin TSH Urine Color Urine Clarity Urine pH Ur Specific [place] Urine Protein Urine Glucose (UA) Urine Ketones Urine Occult Blood Urine Nitrate Urine Bilirubin Urine Urobilinogen Ur Leukocyte Esterase Urine RBC Urine WBC Urine WBC Clumps Ur Squamous Epith Cells Uric Acid Crystals Urine Bacteria Urine Mucus Urine Yeast Micro UA Comment Ur Microscopic Review Urine Culture Comments 09/17/18 09/17/18 09/17/18 03:51 03:51 03:51 WBC RBC Hgb Hct MCV MCH MCHC RDW Plt Count MPV Neut % (Auto) Lymph % (Auto) [place] % (Auto) Eos % (Auto) Baso % (Auto) Neut # (Auto) Lymph # (Auto) [place] # (Auto) Eos # (Auto) Baso # (Auto) WBC Differential Differential Comment PT 12.0 H INR 1.2 APTT 32.0 H D Sodium 145 Potassium 3.3 L Chloride 113 H Carbon Dioxide 25.5 Anion Gap 7 BUN 31 H Creatinine 0.99 Estimated GFR 72 L POC Glucose Random Glucose 90 Lactic Acid 1.2 Calcium 10.0 Phosphorus 2.4 L Magnesium 2.0 Total Bilirubin 0.9 AST 29 ALT 23 Alkaline Phosphatase 45 Total Protein 4.8 L Albumin 1.8 L TSH Urine Color Urine Clarity Urine pH Ur Specific [place] Urine Protein Urine Glucose (UA) Urine Ketones Urine Occult Blood Urine Nitrate Urine Bilirubin Urine Urobilinogen Ur Leukocyte Esterase Urine RBC Urine WBC Urine WBC Clumps Ur Squamous Epith Cells Uric Acid Crystals Urine Bacteria Urine Mucus Urine Yeast Micro UA Comment Ur Microscopic Review Urine Culture Comments 09/17/18 09/17/18 03:51 05:30 WBC RBC Hgb Hct MCV MCH MCHC RDW Plt Count MPV Neut % (Auto) Lymph % (Auto) [place] % (Auto) Eos % (Auto) Baso % (Auto) Neut # (Auto) Lymph # (Auto) [place] # (Auto) Eos # (Auto) Baso # (Auto) WBC Differential Differential Comment PT INR APTT Sodium Potassium Chloride Carbon Dioxide Anion Gap BUN Creatinine Estimated GFR POC Glucose 118 H Random Glucose Lactic Acid Calcium Phosphorus Magnesium Total Bilirubin AST ALT Alkaline Phosphatase Total Protein Albumin TSH 1.570 Urine Color Urine Clarity Urine pH Ur Specific [place] Urine Protein Urine Glucose (UA) Urine Ketones Urine Occult Blood Urine Nitrate Urine Bilirubin Urine Urobilinogen Ur Leukocyte Esterase Urine RBC Urine WBC Urine WBC Clumps Ur Squamous Epith Cells Uric Acid Crystals Urine Bacteria Urine Mucus Urine Yeast Micro UA Comment Ur Microscopic Review Urine Culture Comments Microbiology 09/16/18 11:35 Sputum - Nasal Tracheal Aspirate Gram Stain - Final 09/16/18 11:35 Nasal Wash Influenza Types A,B Antigen - Final Negative for FLU A and B antigen Infection due to influenza A or B cannot be ruled out since the antigen present in the sample may be below the detection limit of the test. 09/15/18 19:48 Blood - Peripheral Aerobic Blood Culture - Preliminary No growth in 1 day 09/15/18 19:48 Blood - Peripheral Anaerobic Blood Culture - Preliminary No growth in 1 day 09/15/18 19:43 Blood - Peripheral Aerobic Blood Culture - Preliminary No growth in 1 day 09/15/18 19:43 Blood - Peripheral Anaerobic Blood Culture - Preliminary No growth in 1 day - Imaging Impressions Face MRI 09/16/18 00:00 CONCLUSION: 1. 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 Assessment and Plan - Plan A/P Community acquired pneumonia Possibly infected basal cell carcinoma possible UTI Nasal cannula to maintain saturations greater than or equal to 92% Incentive spirometry while awake Albuterol/ipratropium aerosols every 4 hours with albuterol aerosols every 2 hours as needed dyspnea continue IV antibiotics ID consulted. CT pulmonary angiogram revealed no central pulmonary embolus. Bilateral lower lobe infiltrates. Dementia disorder NOS Continue memantine 7 mg twice daily and donepezil 10 mg daily for dementia Acetaminophen 650 mg by mouth p.o. every 6 hours as needed fever/pain 1-10 Hydromorphone 1 mg IV every 4 hours as needed breakthrough pain CT brain revealed no acute intracranial findings. Large 10 cm left mass of her face. Sinus tachycardia Lactic acidosis resolved Essential hypertension Home medications are lisinopril 20 mg daily and hydrochlorothiazide 25 mg daily and amlodipine 5 mg daily. Lisinopril and hydrochlorothiazide currently on hold in light of hypotension. As needed labetalol/hydralazine for hypertension Leukocytosis Basal cell carcinoma of the face MRI face with large left face tumor with evidence of deep soft tissue extension Monitor CBC daily. Follow trends. Physical therapy evaluate and treat. will consult Palliative care. Discussed Condition With: the RN and RT.
[2018-09-17] MEDS: Senna/Docusate Sodium 8.6/50 MG Tablet PO SCH ×2 (09:35→21:56)
--- NOTE | 2018-09-17 11:11 | P.CONID ---
History of Present Illness Service: Infectious disease Consult date: 09/17/18 Requesting Physician: Mckinley Velasco Reason for Consult: Evaluate patient with pneumonia, and a fungating mass on the left face Primary Care Provider: UNKNOWN History of Present Illness: Patient seen and examined. Records reviewed. Patient is an 83-year-old male, brought into the hospital for evaluation of shortness of breath. He was also quite lethargic, and at times was hallucinating.. When EMS was called he was hypoxic, he was placed on CPAP and was given a nebulizer treatment he was also initially hypotensive and he was given a liter of fluid with improvement in his hemodynamics. Patient has been having moist cough and was bringing up grayish color phlegm. He has not had any vomiting, and apparently does not have any problem with swallowing. There is been no mention of any fever or chills. Evaluation in the ED showed bilateral basilar consolidation. He is febrile, and his white count is elevated. He was noted to have this large fungating mass on his left face. According to the the patient has had it for more than a year and it started out small. She has been trying to convince him to go to the doctor but refused, since he said it was not hurting and not bothering him. Patient was hospitalized at [facility] about a month ago for evaluation of that mass. There was apparently a biopsy done, and they were advised to go to [facility] for determination of further treatment. According to the to have an appointment on October 04. Infectious disease consultation has been requested to assist with evaluation of patient with pneumonia. Patient has a very moist cough. He is on nasal O2. His temperatures are better. Review of Systems Constitutional: Reports chills, Reports fever(s) Eyes: Denies discharge, Denies dry eyes Ears, Nose, Mouth, and Throat: Denies difficulty swallowing, Denies nasal discharge, Denies sore throat Cardiovascular: Reports shortness of breath, Denies chest pain Respiratory: Reports chest congestion, Reports cough, Reports shortness of breath, Denies coughing up blood Gastrointestinal: Denies abdominal pain, Denies nausea, Denies pain with swallowing, Denies vomiting Genitourinary: Denies difficulty urinating, Denies painful urination Skin/Breast: Reports other (Large mass on left side of face) Neurologic: Reports confusion, Reports other (hallucinations) [facility] - History History 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 - Tobacco History Second Hand Smoke Exposure: No Smoking Status: Unknown if ever smoked - Alcohol History How Often Do You Have a Drink Containing Alcohol: Never - Substance Use History Substance History: No History of Abuse - Travel History Recent Travel in the [place] Within the Last 8 Weeks: No Recent Travel Out of the Country Within the Last 8 Weeks: No - Immunization History Tetanus Immunization: Unsure Medications and Allergies Active Medications: Active Medications Acetaminophen (Tylenol) 650 mg PO Q6H PRN PRN Reason: PAIN 1-5 AND/OR FEVER >101F Al Hydroxide/Mg Hydroxide (Milk Of Danyelle Liq) 30 ml PO Q12H PRN PRN Reason: Mild Constipation Albuterol (Duoneb Neb (Maren)) 1 ampul NEB Q4HR NEB [facility] Last Admin: 09/17/18 07:25 Dose: 1 ampul Albuterol (Albuterol Neb (Prn)) 2.5 mg NEB Q2HR NEB PRN PRN Reason: DYSPNEA Amlodipine Besylate (Norvasc) 10 mg PO DAILY [facility] Bisacodyl (Dulcolax Supp) 10 mg RECTAL DAILY PRN PRN Reason: SEVERE CONSITIPATION Chlorhexidine Gluconate (Chlorhexidine 2% Cloth) 3 pack TOPICAL DAILY@0400 [facility] Stop: 09/21/18 03:59 Last Admin: 09/17/18 05:32 Dose: 3 pack Chlorhexidine Gluconate (Chlorhexidine 2% Cloth) 3 pack TOPICAL DAILY@0400 PRN PRN Reason: Extra cloth needed Stop: 09/21/18 03:59 Dextrose (D50w Vial) 50 ml IV.PUSH UNSCH PRN PRN Reason: PER HYPOGLYCEMIA PROTOCOL Last Admin: 09/16/18 17:32 Dose: 50 ml Donepezil HCl (Aricept) 10 mg PO DAILY [facility] Last Admin: 09/17/18 09:34 Dose: 10 mg Glucagon (Glucagon Inj) 1 mg OTHER PRN PRN PRN Reason: for Hypoglycemia Protocol Heparin Sodium (Porcine) (Heparin Inj) 5,000 units SQ Q8HR [facility] Last Admin: 09/17/18 05:33 Dose: 5,000 units Hydralazine HCl (Apresoline Inj) 10 mg IV.PUSH Q1H PRN PRN Reason: Sbp>165, Dbp>90 Hydromorphone HCl (Dilaudid Pf Inj) 1 mg IV.PUSH Q4H PRN PRN Reason: PAIN SCALE 6 TO 10 Last Admin: 09/17/18 02:14 Dose: 1 mg Sodium Chloride (Ns Inj) 1,000 mls @ 0 mls/hr IV.SIG .Q0M [facility] Last Admin: 09/15/18 20:02 Dose: 2,400 mls/hr Piperacillin/Tazobactam/Dextrose (Zosyn 4.5 Gm Premix) 4.5 gm in 100 mls @ 200 mls/hr IV.SIG Q6H [facility] Last Admin: 09/17/18 09:33 Dose: 200 mls/hr Magnesium Sulfate 4 gm/ Sodium (Chloride) 100 mls @ 50 mls/hr IV.SIG UNSCH PRN PRN Reason: For Magnesium 0.9 - 1.1 mg/dL Magnesium Sulfate 2 gm/ Sodium (Chloride) 100 mls @ 50 mls/hr IV.SIG UNSCH PRN PRN Reason: For Magnesium 1.2 - 1.6 mg/dL Potassium Chloride (Kcl 40 Meq Premix Inj) 40 meq in 100 mls @ 25 mls/hr IV.SIG Q2H PRN PRN Reason: For Potassium 2.8 - 3.2 mEq/L Potassium Chloride (Kcl 20 Meq Premix Inj) 20 meq in 100 mls @ 50 mls/hr IV.SIG Q2H PRN PRN Reason: For Potassium 3.3 - 3.5 mEq/L Potassium Chloride (Kcl 40 Meq Premix Inj) 40 meq in 100 mls @ 25 mls/hr IV.SIG UNSCH PRN PRN Reason: For Potassium 3.3 - 3.5 mEq/L Potassium Phosphate 30 mmol/ (Sodium Chloride) 260 mls @ 42 mls/hr IV.SIG UNSCH PRN PRN Reason: SEE LABEL COMMENTS Sodium Phosphate 30 mmol/ (Sodium Chloride) 260 mls @ 42 mls/hr IV.SIG UNSCH PRN PRN Reason: For Phosphorus < 2.5 mg/dL Potassium Chloride (Kcl 20 Meq Premix Inj) 20 meq in 100 mls @ 50 mls/hr IV.SIG Q2H PRN PRN Reason: For Potassium 2.8 - 3.2 mEq/L Vancomycin HCl 1,250 mg/ (Sodium Chloride) 262.5 mls @ 250 mls/hr IV.SIG Q24H [facility] Last Infusion: 09/17/18 02:04 Dose: Infused Dextrose/Sodium Chloride (D5w/1/2 Ns Inj) 1,000 mls @ 65 mls/hr IV.CONT .[id number] [facility] Stop: 09/18/18 00:46 Last Admin: 09/16/18 17:40 Dose: 65 mls/hr Insulin Aspart (Novolog Insulin [place] Sugar Inj) 0 unit SQ Q6HR [facility]; Protocol Last Admin: 09/17/18 06:26 Dose: Not Given Labetalol HCl (Trandate Inj) 10 mg IV.PUSH Q1H PRN PRN Reason: Sbp>165, Dbp>90, Hr>65 Lactulose (Lactulose Liq) 30 ml PO DAILY PRN PRN Reason: SEVERE CONSITIPATION Magnesium Oxide (Mag-Ox) 800 mg PO UNSCH PRN PRN Reason: For Magnesium 1.2 - 1.6 mg/dL Miscellaneous Information ([facility] Ordered Lab Info) 0 each OTHER ONCE ONE Stop: 09/17/18 23:46 Nitroglycerin (Nitro-Bid 2% Oint) 2 inch TOPICAL Q6H PRN PRN Reason: Sbp>165, Dbp>90 Ondansetron HCl (Zofran Inj) 4 mg IV.PUSH Q6H PRN PRN Reason: NAUSEA OR VOMITING Pantoprazole Sodium (Protonix Inj) 40 mg IV.PUSH Q24H [facility] Last Admin: 09/16/18 17:32 Dose: 40 mg Pt Own Memantine 7 (Mg Xr Tablet) 1 each PO BID [facility] Pharmacy Profile Note (Vancomycin Consult Pharmacy) 1 each OTHER UNSCH PRN PRN Reason: Pharmacy to dose Potassium Bicarb/Potassium Chloride (K-Lyte Cl Eff) 50 meq PO UNSCH PRN PRN Reason: For Potassium 3.3 - 3.5 mEq/L Potassium Phosphate (K-Phos Original) 2,000 mg PO Q4H PRN PRN Reason: Phosphorus Less Than 2.5 mg/dL Potassium Phosphate (K-Phos Original) 2,000 mg PO UNSCH PRN PRN Reason: SEE LABEL COMMENTS Senna/Docusate Sodium (Ashlyn-Colace) 1 tab PO BID [facility] Last Admin: 09/17/18 09:35 Dose: 1 tab Sennosides (Senokot) 17.2 mg PO Q12H PRN PRN Reason: Moderate Constipation Sodium Chloride (Ns Flush) 2 ml IV.FLUSH BID [facility] Last Admin: 09/17/18 09:34 Dose: 2 ml Sodium Chloride (Ns Flush) 2 ml IV.FLUSH PRN PRN PRN Reason: FLUSH AFTER USING IV ACCESS Temazepam (Restoril) 15 mg PO HS PRN PRN Reason: INSOMNIA Allergies Allergy/AdvReac Type Severity Reaction Status Date / Time No Known Allergies Allergy Verified 09/15/18 19:43 Home Medications Medication Instructions Recorded Confirmed Type amlodipine 5 mg PO DAILY 09/15/18 09/15/18 History donepezil 10 mg PO DAILY 09/15/18 09/15/18 History lisinopril-hydrochlorothiazide 1 tab PO DAILY 09/15/18 09/15/18 History memantine 7 mg PO BID 09/15/18 09/15/18 History Exam Vital signs: Vital Signs 09/16/18 11:00 09/16/18 11:01 09/16/18 11:02 Temperature Pulse Rate 63 60 Respiratory Rate 52 H 27 H Blood Pressure 115/55 L Pulse Oximetry 94 L 94 L 97 09/16/18 11:05 09/16/18 12:00 09/16/18 12:01 Temperature 98.4 F Pulse Rate 73 77 69 Respiratory Rate 22 73 H 87 H Blood Pressure 142/62 H Pulse Oximetry 94 L 94 L 09/16/18 13:00 09/16/18 13:01 09/16/18 14:00 Temperature Pulse Rate 56 L 54 L 79 Respiratory Rate 93 H 96 H 107 H Blood Pressure 112/55 L 126/58 L Pulse Oximetry 97 98 93 L 09/16/18 15:00 09/16/18 15:56 09/16/18 16:00 Temperature 98.5 F Pulse Rate 86 84 74 Respiratory Rate 91 H 24 162 H Blood Pressure 128/59 L Pulse Oximetry 97 87 L 09/16/18 16:01 09/16/18 17:00 09/16/18 17:01 Temperature Pulse Rate 79 79 85 Respiratory Rate 182 H 85 H 88 H Blood Pressure 155/65 H 137/61 Pulse Oximetry 85 L 87 L 86 L 09/16/18 18:00 09/16/18 18:01 09/16/18 19:41 Temperature Pulse Rate 64 82 84 Respiratory Rate 102 H 86 H 20 Blood Pressure 116/55 L Pulse Oximetry 100 97 96 09/16/18 20:00 09/16/18 22:00 09/17/18 00:00 Temperature 98.7 F 98.5 F Pulse Rate 83 83 73 Respiratory Rate 18 17 Blood Pressure 137/63 132/63 Pulse Oximetry 100 100 09/17/18 00:27 09/17/18 02:00 09/17/18 02:44 Temperature Pulse Rate 54 L 80 Respiratory Rate 20 16 Blood Pressure Pulse Oximetry 09/17/18 03:41 09/17/18 04:00 09/17/18 06:00 Temperature 98.7 F Pulse Rate 50 L 50 L 48 L Respiratory Rate 20 16 Blood Pressure 120/60 Pulse Oximetry 100 09/17/18 07:27 09/17/18 07:34 Temperature Pulse Rate 49 L Respiratory Rate 24 Blood Pressure Pulse Oximetry 97 Intake & Output 09/16/18 09/17/18 09/17/18 18:59 06:59 18:59 Intake Total 3274 / 3274 462.5 / 462.5 Output Total 1000 / 1000 1100 / 1100 Balance 2274 / 2274 -637.5 / -637.5 Weight 72.4 kg Intake: IV 3274 / 3274 462.5 / 462.5 NS Inj 1,000 ML @ 184 mls/hr IV 2474 / 2474 .CONT .Q5H27M [facility] Rx#:[id number] Zosyn 4.5 GM Premix 4.5 gm In 300 / 300 200 / 200 100 ml @ 200 mls/hr IV.SIG Q6H [facility] Rx#:[id number] Vancomycin Inj 1,000 MG In NS 250 / 250 Inj 250 ML @ 250 mls/hr IV.SIG ONCE ONE Rx#:[id number] Vancomycin Inj 1,250 MG In NS 262.5 / 262.5 Inj 250 ML @ 250 mls/hr IV.SIG Q24H [facility] Rx#:[id number] Output: Urine Amount (Catheter) 1000 / 1000 1100 / 1100 Indwelling Urethral Catheter 1000 / 1000 1100 / 1100 Other: Date of Last Bowel Movement 09/16/18 09/17/18 # Bowel Movements 1 1 # Incontinent Bowel Movements 1 Narrative: Physical examination GENERAL: Patient is a well-nourished, well-developed male, awake and alert, oriented to time, place and person. Mildly dyspneic at rest and has a very moist cough. SKIN: Cool and dry. No generalized rash, no ecchymoses HEAD: Atraumatic, normocephalic EYES: [place] conjunctiva. No petechia or hemorrhage. Pupils equal, round and reactive to light. Extraocular movements full and intact. No scleral icterus. No injection or drainage. 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 Nose without bleeding or purulent nasal discharge Mucous membranes pink and moist. NECK: Trachea midline. Supple and not tender, no meningeal signs CARDIOVASCULAR: Regular rate and rhythm. No murmurs, rubs or gallops heard RESPIRATORY: Clear to auscultation. Breath sounds equal bilaterally. Rales at bases. ABDOMEN: Soft, non-tender, nondistended. Bowel sounds present and normoactive. No guarding. No rebound. No organomegaly. EXTREMITIES: No clubbing, cyanosis, or edema. Has brownish pigmentation distal legs. No calf tenderness. Well perfused and warm. NEUROLOGICAL: Awake and alert. Cranial nerves grossly intact. Motor grossly within normal limits. PSYCHIATRIC: cooperative. LINE: No evidence of infection Results - Labs CBC & Chem 7: 09/17/18 03:51 09/17/18 03:51 Labs: Laboratory Results - last 24 hr 09/16/18 09/16/18 09/16/18 11:35 12:12 17:28 WBC RBC Hgb Hct MCV MCH MCHC RDW Plt Count MPV Neut % (Auto) Lymph % (Auto) [place] % (Auto) Eos % (Auto) Baso % (Auto) Neut # (Auto) Lymph # (Auto) [place] # (Auto) Eos # (Auto) Baso # (Auto) WBC Differential Differential Comment PT INR APTT Sodium Potassium Chloride Carbon Dioxide Anion Gap BUN Creatinine Estimated GFR POC Glucose 83 64 L Random Glucose Lactic Acid Calcium Phosphorus Magnesium Total Bilirubin AST ALT Alkaline Phosphatase Total Protein Albumin TSH Urine Color Yellow Urine Clarity Cloudy H Urine pH 5.0 Ur Specific [place] 1.027 Urine Protein 30 H Urine Glucose (UA) Negative Urine Ketones Negative Urine Occult Blood Large H Urine Nitrate Negative Urine Bilirubin Negative Urine Urobilinogen Less than 2 Ur Leukocyte Esterase Large H Urine RBC Urine WBC 71 H Urine WBC Clumps Occasional H Ur Squamous Epith Cells 1 Uric Acid Crystals Occasional H Urine Bacteria Rare H Urine Mucus Few H Urine Yeast Occasional H Micro UA Comment Cath-culture ind Ur Microscopic Review Not Reportable Urine Culture Comments Cath-cult indicated 09/16/18 09/17/18 09/17/18 17:39 00:58 03:51 WBC 17.0 H RBC 3.14 L Hgb 9.7 L Hct 28.9 L MCV 92.1 MCH 31.0 MCHC 33.7 RDW 13.1 Plt Count 215 MPV 6.7 L Neut % (Auto) 88.2 H Lymph % (Auto) 5.0 L Emmet % (Auto) 5.6 Eos % (Auto) 0.7 Baso % (Auto) 0.5 Neut # (Auto) 15.0 H Lymph # (Auto) 0.9 L Emmet # (Auto) 1.0 H Eos # (Auto) 0.1 Baso # (Auto) 0.1 WBC Differential . Differential Comment Auto diff final PT INR APTT Sodium Potassium Chloride Carbon Dioxide Anion Gap BUN Creatinine Estimated GFR POC Glucose 202 H 98 Random Glucose Lactic Acid Calcium Phosphorus Magnesium Total Bilirubin AST ALT Alkaline Phosphatase Total Protein Albumin TSH Urine Color Urine Clarity Urine pH Ur Specific [place] Urine Protein Urine Glucose (UA) Urine Ketones Urine Occult Blood Urine Nitrate Urine Bilirubin Urine Urobilinogen Ur Leukocyte Esterase Urine RBC Urine WBC Urine WBC Clumps Ur Squamous Epith Cells Uric Acid Crystals Urine Bacteria Urine Mucus Urine Yeast Micro UA Comment Ur Microscopic Review Urine Culture Comments 09/17/18 09/17/18 09/17/18 03:51 03:51 03:51 WBC RBC Hgb Hct MCV MCH MCHC RDW Plt Count MPV Neut % (Auto) Lymph % (Auto) [place] % (Auto) Eos % (Auto) Baso % (Auto) Neut # (Auto) Lymph # (Auto) [place] # (Auto) Eos # (Auto) Baso # (Auto) WBC Differential Differential Comment PT 12.0 H INR 1.2 APTT 32.0 H D Sodium 145 Potassium 3.3 L Chloride 113 H Carbon Dioxide 25.5 Anion Gap 7 BUN 31 H Creatinine 0.99 Estimated GFR 72 L POC Glucose Random Glucose 90 Lactic Acid 1.2 Calcium 10.0 Phosphorus 2.4 L Magnesium 2.0 Total Bilirubin 0.9 AST 29 ALT 23 Alkaline Phosphatase 45 Total Protein 4.8 L Albumin 1.8 L TSH Urine Color Urine Clarity Urine pH Ur Specific [place] Urine Protein Urine Glucose (UA) Urine Ketones Urine Occult Blood Urine Nitrate Urine Bilirubin Urine Urobilinogen Ur Leukocyte Esterase Urine RBC Urine WBC Urine WBC Clumps Ur Squamous Epith Cells Uric Acid Crystals Urine Bacteria Urine Mucus Urine Yeast Micro UA Comment Ur Microscopic Review Urine Culture Comments 09/17/18 09/17/18 03:51 05:30 WBC RBC Hgb Hct MCV MCH MCHC RDW Plt Count MPV Neut % (Auto) Lymph % (Auto) [place] % (Auto) Eos % (Auto) Baso % (Auto) Neut # (Auto) Lymph # (Auto) [place] # (Auto) Eos # (Auto) Baso # (Auto) WBC Differential Differential Comment PT INR APTT Sodium Potassium Chloride Carbon Dioxide Anion Gap BUN Creatinine Estimated GFR POC Glucose 118 H Random Glucose Lactic Acid Calcium Phosphorus Magnesium Total Bilirubin AST ALT Alkaline Phosphatase Total Protein Albumin TSH 1.570 Urine Color Urine Clarity Urine pH Ur Specific [place] Urine Protein Urine Glucose (UA) Urine Ketones Urine Occult Blood Urine Nitrate Urine Bilirubin Urine Urobilinogen Ur Leukocyte Esterase Urine RBC Urine WBC Urine WBC Clumps Ur Squamous Epith Cells Uric Acid Crystals Urine Bacteria Urine Mucus Urine Yeast Micro UA Comment Ur Microscopic Review Urine Culture Comments - Imaging Impressions Face MRI 09/16/18 00:00 CONCLUSION: 1. 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 Chest X-Ray 09/15/18 19:43 CONCLUSION: Probable infiltrate in the lower lateral left lung. Chest CTA 09/15/18 20:35 CONCLUSION: 1. The study is negative for central pulmonary embolism. 2. Bilateral lower lobe consolidative infiltrates. Head CT 09/15/18 20:35 CONCLUSION: 1. No acute findings in the brain. 2. Large irregular margin soft tissue mass in the left face measuring in excess of 10 cm. 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
--- NOTE | 2018-09-17 13:06 | P.DIET ---
Nutritional Evaluation Type of nutrition evaluation: initial Nutrition consult regarding: Diet Evaluation Nutrition screening: Poor PO Intake Objective - Diagnosis sepsis, pneumonia - Objective Body Mass Index: 22.9 % IBW: 96 (IBW = 166lb) Body Weight Used for Calculations: Actual Energy Needs - Lower Range (kCal/kg): 22 Energy Needs - Upper Range (kCal/kg): 28 Lower Limit kCal/kg (kCals): 1,593 Upper Limit kCal/kg (kCals): 2,027 Lower Limit Protein Factor (Grams per Kg): 1.1 Upper Limit Protein Factor (Grams per Kg): 1.3 Lower Protein Needs (Protein): 80 Upper Protein Needs (Protein): 94 Dietitian Reviewed in Medical Record: Current diet, Curent medications, Intake & Output, Labs, Medical history Diet Order: Cardiac diet Oral Diet Intake Amount: Poor <50% Speech Therapy Recommendations: Yes (pureed, honey consistency thickened liquids ) Objective Comments: Labs: BUN 31, GFR 72, Phos 2.4 Assessment Assessment: Pt at nutritional risk r/t reported poor PO intake. ST notes reveiwed, pt able to tolerate pureed, honey consistency thickened liquids per ST. RD to recommend Ensure pudding TID as PO supplement. Monitor PO and supplement intake. Labs reviewed, dietitian following. Recommendations: 1. Pureed, honey consistency thickened liquids per ST 2. RD to recommend Ensure pudding TID as PO supplement 3. Monitor PO and supplement intake 4. Dietitian following Dietitian to Monitor: Lab values, Supplement acceptance, Intake & Output, Diet tolerance, PO Intake, Medical course
--- NOTE | 2018-09-17 13:28 | P.PNADD ---
Addendum to Inpatient Note Reason for Addendum: Additional Documentation (spoke with the ; she was given an update; code status and extent of care were discussed; paient will be switched to " DNR" status and hospice will be consulted per our discussion and the 's request.)
[2018-09-17] MEDS: Dextrose 5%/NaCl 0.45% Inj 1,000 ML IV.CONT SCH (13:45)
[2018-09-17] MEDS: Pantoprazole Inj 40 MG Vial IV.PUSH SCH (16:10)
[2018-09-17] MEDS ORDERED: Pharmacy Ordered Lab Info OTHER ONE (23:45)
[2018-09-18] MEDS: Insulin NovoLOG Aspart Correctional Sugar Inj SQ SCH ×3 (02:59→12:46)
[2018-09-18] MEDS: Piperacil/Tazo 4.5 GM Premix 4.5 GM/100 ML BAG IV.SIG SCH ×2 (03:02→07:58)
[2018-09-18] MEDS: Chlorhexidine Gluconate 2% 1 Pack (2 Cloths) TOPICAL SCH (03:03)
[2018-09-18] MEDS: Heparin - SQ 10,000 UNITS/ML Vial SQ SCH ×2 (05:10→14:39)
[2018-09-18 05:31] LABS: Baso % (Auto) 0.3 % (0.0-2.0); Eos # (Auto) 0.2 th/mm3 (0.0-0.4); Eos % (Auto) 1.6 % (0.0-4.0); Hematocrit 29.7 % (39.0-51.0); Lymph % (Auto) 6.8 % (9.0-44.0); Mean Corpuscular HGB Conc 33.7 % (32.0-36.0); Mean Corpuscular Hemoglobin 30.5 pg (27.0-34.0); Mean Corpuscular Volume 90.7 fL (80.0-100.0); Mean Platelet Volume 7.2 fL (7.0-11.0); Mono # (Auto) 0.8 th/mm3 (0.0-0.9); Mono % (Auto) 5.4 % (0.0-8.0); Neut # (Auto) 12.1 th/mm3 (1.8-7.7); Neut % (Auto) 85.9 % (16.0-70.0); Platelet Count 244 th/mm3 (150-450); Red Blood Count 3.28 mil/mm3 (4.50-5.90); Red Cell Distribution Width 12.8 % (11.6-17.2); White Blood Count 14.1 th/mm3 (4.0-11.0)
--- NOTE | 2018-09-18 07:54 | P.PNIM ---
Subjective Interval history: f/u; pneumonia/basal cell carcinoma in no acute distress but somewhat ill-looking. denies pain. has occasional cough. no fever. Physical Exam Vital signs: Vital Signs 09/17/18 08:00 09/17/18 08:01 09/17/18 09:00 Temperature 97.8 F Pulse Rate 54 L 47 L 50 L Respiratory Rate 157 H 44 H 108 H Blood Pressure 136/62 Pulse Oximetry 96 95 96 09/17/18 09:01 09/17/18 10:00 09/17/18 11:00 Temperature Pulse Rate 51 L 50 L 66 Respiratory Rate 101 H 79 H 124 H Blood Pressure 136/65 131/77 Pulse Oximetry 95 94 L 100 09/17/18 11:01 09/17/18 11:09 09/17/18 12:00 Temperature 98.0 F Pulse Rate 47 L 53 L 47 L Respiratory Rate 124 H 24 132 H Blood Pressure 120/73 130/58 L Pulse Oximetry 100 96 09/17/18 13:00 09/17/18 13:01 09/17/18 14:00 Temperature Pulse Rate 60 44 L 55 L Respiratory Rate 92 H 101 H 52 H Blood Pressure 129/60 138/71 Pulse Oximetry 96 96 94 L 09/17/18 15:00 09/17/18 15:01 09/17/18 15:33 Temperature Pulse Rate 64 49 L 83 Respiratory Rate 52 H 58 H 24 Blood Pressure 130/72 Pulse Oximetry 96 96 09/17/18 16:00 09/17/18 18:00 09/17/18 19:21 Temperature 97.6 F Pulse Rate 78 86 58 L Respiratory Rate 20 Blood Pressure Pulse Oximetry 94 L 09/17/18 20:00 09/17/18 22:00 09/17/18 23:16 Temperature 98.5 F Pulse Rate 62 86 75 Respiratory Rate 18 20 Blood Pressure 131/57 L Pulse Oximetry 95 09/18/18 00:00 09/18/18 02:00 09/18/18 03:29 Temperature 98.3 F Pulse Rate 87 76 57 L Respiratory Rate 18 20 Blood Pressure 138/70 Pulse Oximetry 95 09/18/18 04:00 09/18/18 06:00 Temperature 98.1 F Pulse Rate 76 78 Respiratory Rate 18 Blood Pressure 137/59 L Pulse Oximetry 95 Intake & Output 09/17/18 09/18/18 09/18/18 18:59 06:59 18:59 Intake Total 2150 / 2150 522.5 / 522.5 Output Total 775 / 775 600 / 600 Balance 1375 / 1375 -77.5 / -77.5 Weight 72.1 kg Intake: IV 2100 / 2100 462.5 / 462.5 D5W/1/2 NS Inj 1,000 ML @ 65 1000 / 1000 mls/hr IV.CONT .[id number] [facility] Rx# :[id number] Zosyn 4.5 GM Premix 4.5 gm In 100 / 100 200 / 200 100 ml @ 200 mls/hr IV.SIG Q6H [facility] Rx#:[id number] Vancomycin Inj 1,250 MG In NS 262.5 / 262.5 Inj 250 ML @ 250 mls/hr IV.SIG Q24H [facility] Rx#:[id number] Oral 50 / 50 60 / 60 Output: Urine Amount (Catheter) 775 / 775 600 / 600 Indwelling Urethral Catheter 775 / 775 600 / 600 Other: Date of Last Bowel Movement 09/17/18 09/16/18 # Bowel Movements 1 1 # Incontinent Bowel Movements 1 - Constitutional no acute distress - Routine HEENT Exam Comments: large mass on the left face. - Routine Respiratory Exam Present: CTA bilaterally Comments: with coarse sounds. - Routine Cardiovascular Exam Present: RRR - Routine Abdominal Exam Present: soft - Routine Extremities Exam Comments: no pedal edema. - Routine Neurological Exam Present: alert - Urinary Catheter Management Indwelling Urethral Catheter Cath placed during this visit: yes Reason for continuing: Terminally ill/Comfort care Insertion date: 09/15/18 Insertion time: 20:02 Results - Labs CBC & Chem 7: 09/18/18 03:16 09/17/18 03:51 Laboratory Results - last 24 hr 09/17/18 09/17/18 09/17/18 12:50 17:15 23:45 WBC RBC Hgb Hct MCV MCH MCHC RDW Plt Count MPV Neut % (Auto) Lymph % (Auto) [place] % (Auto) Eos % (Auto) Baso % (Auto) Neut # (Auto) Lymph # (Auto) [place] # (Auto) Eos # (Auto) Baso # (Auto) WBC Differential Differential Comment POC Glucose 98 183 H Vancomycin Trough 10.1 H 09/17/18 09/18/18 09/18/18 23:52 03:16 05:00 WBC 14.1 H RBC 3.28 L Hgb 10.0 L Hct 29.7 L MCV 90.7 MCH 30.5 MCHC 33.7 RDW 12.8 Plt Count 244 MPV 7.2 Neut % (Auto) 85.9 H Lymph % (Auto) 6.8 L [place] % (Auto) 5.4 Eos % (Auto) 1.6 Baso % (Auto) 0.3 Neut # (Auto) 12.1 H Lymph # (Auto) 1.0 [place] # (Auto) 0.8 Eos # (Auto) 0.2 Baso # (Auto) 0.0 WBC Differential . Differential Comment Auto diff final POC Glucose 121 H 123 H Vancomycin Trough Microbiology 09/16/18 11:35 Sputum - Nasal Tracheal Aspirate Gram Stain - Final 09/16/18 11:35 Sputum - Nasal Tracheal Aspirate Sputum Culture - Preliminary Heavy growth normal respiratory noemi at 24 hours 09/16/18 11:35 Catheterized Urine Urine Culture - Preliminary No growth in 24 hours 09/16/18 11:35 Urine - Catheterized Urine Streptococcus pneumoniae Antigen ( M - Final Presumptive negative for streptococcus pneumoniae antigen, suggesting no current or recent infection. Infection due to Streptococcus pneumoniae cannot be ruled out since the antigen present in the sample may be below the detection limit of the test. 09/16/18 11:35 Urine - Catheterized Urine Legionella Antigen - Final Presumptive negative for Legionella pneumophila serogroup 1 antigen in urine, suggesting no recent or recurrent infection. Infection due to Legionella cannot be ruled out since other serogroups and species may cause disease, antigen may not be present in urine in early infection, and the level of antigen present in the urine may be below the detection limit of the test. 09/15/18 19:48 Blood - Peripheral Aerobic Blood Culture - Preliminary No growth in 2 days 09/15/18 19:48 Blood - Peripheral Anaerobic Blood Culture - Preliminary No growth in 2 days 09/15/18 19:43 Blood - Peripheral Aerobic Blood Culture - Preliminary No growth in 2 days 09/15/18 19:43 Blood - Peripheral Anaerobic Blood Culture - Preliminary No growth in 2 days Assessment and Plan - Plan A/P severe sepsis aspiration pneumonia/ acute hypoxemic respiratory failure Possibly infected basal cell carcinoma possible UTI Nasal cannula to maintain saturations greater than or equal to 92% Incentive spirometry while awake Albuterol/ipratropium aerosols every 4 hours with albuterol aerosols every 2 hours as needed dyspnea continue IV antibiotics ID consult appreciated. CT pulmonary angiogram revealed no central pulmonary embolus. Bilateral lower lobe infiltrates. Dementia disorder NOS Continue memantine 7 mg twice daily and donepezil 10 mg daily for dementia Acetaminophen 650 mg by mouth p.o. every 6 hours as needed fever/pain 1-10 Hydromorphone 1 mg IV every 4 hours as needed breakthrough pain CT brain revealed no acute intracranial findings. Large 10 cm left mass of her face. Sinus tachycardia Lactic acidosis resolved Essential hypertension Home medications are lisinopril 20 mg daily and hydrochlorothiazide 25 mg daily and amlodipine 5 mg daily. Lisinopril and hydrochlorothiazide currently on hold. As needed labetalol/hydralazine for hypertension Leukocytosis Basal cell carcinoma of the face MRI face with large left face tumor with evidence of deep soft tissue extension Physical therapy evaluate and treat. consulted hospice after my previous d/w the . NO code status. Discharge Planning: possible Hospice; awaiting hospice evaluation.
[2018-09-18] MEDS: Senna/Docusate Sodium 8.6/50 MG Tablet PO SCH (08:02)
[2018-09-18 11:25] VITALS: TEMP 97.6
[2018-09-18] MEDS ORDERED: levoFLOXacin 500 MG Tablet PO SCH (11:45)
--- NOTE | 2018-09-18 11:48 | P.PNID ---
Subjective Remarks: Patient is an 83-year-old male, brought into the hospital for evaluation of shortness of breath. He was also quite lethargic, and at times was hallucinating.. When EMS was called he was hypoxic, he was placed on CPAP and was given a nebulizer treatment he was also initially hypotensive and he was given a liter of fluid with improvement in his hemodynamics. Patient has been having moist cough and was bringing up grayish color phlegm. He has not had any vomiting, and apparently does not have any problem with swallowing. There is been no mention of any fever or chills. Evaluation in the ED showed bilateral basilar consolidation. He is febrile, and his white count is elevated. He was noted to have this large fungating mass on his left face. According to the the patient has had it for more than a year and it started out small. She has been trying to convince him to go to the doctor but refused, since he said it was not hurting and not bothering him. Patient was hospitalized at [facility] about a month ago for evaluation of that mass. There was apparently a biopsy done, and they were advised to go to [facility] for determination of further treatment. According to the to have an appointment on October 04. Infectious disease consultation has been requested to assist with evaluation of patient with pneumonia. Patient has a very moist cough. He is on nasal O2. His temperatures are better. Notes reviewed D/W RN Spoke with Dr Everett Patient made DNR requesting hospice Patient just seen by palliative medicine Antibiotics: Zosyn vancomycin Past Medical History: Reviewed Allergies/Adverse Reactions: Allergies No Known Allergies Allergy (Verified 09/15/18 19:43) Objective Vital Signs 09/17/18 12:00 09/17/18 13:00 09/17/18 13:01 Temperature 98.0 F Pulse Rate 47 L 60 44 L Respiratory Rate 132 H 92 H 101 H Blood Pressure 130/58 L 129/60 Pulse Oximetry 96 96 96 09/17/18 14:00 09/17/18 15:00 09/17/18 15:01 Temperature Pulse Rate 55 L 64 49 L Respiratory Rate 52 H 52 H 58 H Blood Pressure 138/71 130/72 Pulse Oximetry 94 L 96 96 09/17/18 15:33 09/17/18 16:00 09/17/18 18:00 Temperature 97.6 F Pulse Rate 83 78 86 Respiratory Rate 24 Blood Pressure Pulse Oximetry 09/17/18 19:21 09/17/18 20:00 09/17/18 22:00 Temperature 98.5 F Pulse Rate 58 L 62 86 Respiratory Rate 20 18 Blood Pressure 131/57 L Pulse Oximetry 94 L 95 09/17/18 23:16 09/18/18 00:00 09/18/18 02:00 Temperature 98.3 F Pulse Rate 75 87 76 Respiratory Rate 20 18 Blood Pressure 138/70 Pulse Oximetry 95 09/18/18 03:29 09/18/18 04:00 09/18/18 06:00 Temperature 98.1 F Pulse Rate 57 L 76 78 Respiratory Rate 20 18 Blood Pressure 137/59 L Pulse Oximetry 95 09/18/18 08:00 09/18/18 09:00 09/18/18 10:00 Temperature 97.6 F Pulse Rate 53 L 67 60 Respiratory Rate 34 H 150 H 113 H Blood Pressure 142/66 H 144/65 H 133/83 Pulse Oximetry 95 92 L 09/18/18 10:23 09/18/18 11:00 Temperature Pulse Rate 57 L 67 Respiratory Rate 24 107 H Blood Pressure 143/94 H Pulse Oximetry 93 L Intake & Output 09/17/18 09/18/18 09/18/18 18:59 06:59 18:59 Intake Total 2150 / 2150 522.5 / 522.5 800 / 800 Output Total 775 / 775 600 / 600 Balance 1375 / 1375 -77.5 / -77.5 800 / 800 Weight 72.1 kg Intake: IV 2100 / 2100 462.5 / 462.5 800 / 800 D5W/1/2 NS Inj 1,000 ML @ 65 1000 / 1000 700 / 700 mls/hr IV.CONT .[id number] [facility] Rx# :[id number] Zosyn 4.5 GM Premix 4.5 gm In 100 / 100 200 / 200 100 / 100 100 ml @ 200 mls/hr IV.SIG Q6H [facility] Rx#:[id number] Vancomycin Inj 1,250 MG In NS 262.5 / 262.5 Inj 250 ML @ 250 mls/hr IV.SIG Q24H [facility] Rx#:[id number] Oral 50 / 50 60 / 60 Output: Urine Amount (Catheter) 775 / 775 600 / 600 Indwelling Urethral Catheter 775 / 775 600 / 600 Other: Date of Last Bowel Movement 09/17/18 09/16/18 09/18/18 # Bowel Movements 1 1 # Incontinent Bowel Movements 1 09/15/18 19:48 Blood - Peripheral Aerobic Blood Culture - Preliminary No growth in 3 days 09/15/18 19:48 Blood - Peripheral Anaerobic Blood Culture - Preliminary No growth in 3 days 09/15/18 19:43 Blood - Peripheral Aerobic Blood Culture - Preliminary No growth in 3 days 09/15/18 19:43 Blood - Peripheral Anaerobic Blood Culture - Preliminary No growth in 3 days 09/16/18 11:35 Catheterized Urine Urine Culture - Final No growth in 48 hours 09/16/18 11:35 Sputum - Nasal Tracheal Aspirate Gram Stain - Final 09/16/18 11:35 Sputum - Nasal Tracheal Aspirate Sputum Culture - Preliminary Heavy growth normal respiratory noemi at 24 hours 09/16/18 11:35 Urine - Catheterized Urine Streptococcus pneumoniae Antigen ( M - Final Presumptive negative for streptococcus pneumoniae antigen, suggesting no current or recent infection. Infection due to Streptococcus pneumoniae cannot be ruled out since the antigen present in the sample may be below the detection limit of the test. 09/16/18 11:35 Urine - Catheterized Urine Legionella Antigen - Final Presumptive negative for Legionella pneumophila serogroup 1 antigen in urine, suggesting no recent or recurrent infection. Infection due to Legionella cannot be ruled out since other serogroups and species may cause disease, antigen may not be present in urine in early infection, and the level of antigen present in the urine may be below the detection limit of the test. 09/16/18 11:35 Nasal Wash Influenza Types A,B Antigen - Final Negative for FLU A and B antigen Infection due to influenza A or B cannot be ruled out since the antigen present in the sample may be below the detection limit of the test. Lab - Hematology Results 09/17/18 09/18/18 03:51 03:16 WBC 17.0 H 14.1 H RBC 3.14 L 3.28 L Hgb 9.7 L 10.0 L Hct 28.9 L 29.7 L MCV 92.1 90.7 MCH 31.0 30.5 MCHC 33.7 33.7 RDW 13.1 12.8 Plt Count 215 244 MPV 6.7 L 7.2 Neut % (Auto) 88.2 H 85.9 H Lymph % (Auto) 5.0 L 6.8 L [place]son % (Auto) 5.6 5.4 Eos % (Auto) 0.7 1.6 Baso % (Auto) 0.5 0.3 Neut # (Auto) 15.0 H 12.1 H Lymph # (Auto) 0.9 L 1.0 [place]son # (Auto) 1.0 H 0.8 Eos # (Auto) 0.1 0.2 Baso # (Auto) 0.1 0.0 WBC Differential . . Differential Comment Auto diff final Auto diff final Lab - Chemistry Results 09/16/18 09/16/18 09/16/18 12:12 17:28 17:39 Sodium Potassium Chloride Carbon Dioxide Anion Gap BUN Creatinine Estimated GFR POC Glucose 83 64 L 202 H Random Glucose Lactic Acid Calcium Phosphorus Magnesium Total Bilirubin AST ALT Alkaline Phosphatase Total Protein Albumin TSH 09/17/18 09/17/18 09/17/18 00:58 03:51 03:51 Sodium 145 Potassium 3.3 L Chloride 113 H Carbon Dioxide 25.5 Anion Gap 7 BUN 31 H Creatinine 0.99 Estimated GFR 72 L POC Glucose 98 Random Glucose 90 Lactic Acid 1.2 Calcium 10.0 Phosphorus 2.4 L Magnesium 2.0 Total Bilirubin 0.9 AST 29 ALT 23 Alkaline Phosphatase 45 Total Protein 4.8 L Albumin 1.8 L TSH 09/17/18 09/17/18 09/17/18 03:51 05:30 12:50 Sodium Potassium Chloride Carbon Dioxide Anion Gap BUN Creatinine Estimated GFR POC Glucose 118 H 98 Random Glucose Lactic Acid Calcium Phosphorus Magnesium Total Bilirubin AST ALT Alkaline Phosphatase Total Protein Albumin TSH 1.570 09/17/18 09/17/18 09/18/18 17:15 23:52 05:00 Sodium Potassium Chloride Carbon Dioxide Anion Gap BUN Creatinine Estimated GFR POC Glucose 183 H 121 H 123 H Random Glucose Lactic Acid Calcium Phosphorus Magnesium Total Bilirubin AST ALT Alkaline Phosphatase Total Protein Albumin TSH Imaging: ITS Impressions Chest X-Ray 09/15/18 19:43 CONCLUSION: Probable infiltrate in the lower lateral left lung. Chest CTA 09/15/18 20:35 CONCLUSION: 1. The study is negative for central pulmonary embolism. 2. Bilateral lower lobe consolidative infiltrates. Head CT 09/15/18 20:35 CONCLUSION: 1. No acute findings in the brain. 2. Large irregular margin soft tissue mass in the left face measuring in excess of 10 cm. . Face MRI 09/16/18 00:00 CONCLUSION: 1. 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 Physical Exam: GENERAL: Awakens easily, dressing on L side of face, has very moist cough SKIN: Cool and dry. No generalized rash, no ecchymoses EARS, NOSE AND THROAT: Has a very large fungating mass on his L cheek, some with necrosis and some ulcerated with foul smelling yellow exudate, extends and covering his L auricle, and down to the L jaw area. Nose without bleeding or purulent nasal discharge Mucous membranes pink and moist. NECK: Trachea midline. Supple and not tender, no meningeal signs CARDIOVASCULAR: Regular rate and rhythm. No murmurs, rubs or gallops heard RESPIRATORY: Clear to auscultation. Breath sounds equal bilaterally. Rales at bases. ABDOMEN: Soft, non-tender, nondistended. Bowel sounds present and normoactive. No guarding. No rebound. No organomegaly. EXTREMITIES: No clubbing, cyanosis, or edema. Has brownish pigmentation distal legs. No calf tenderness. Well perfused and warm. NEUROLOGICAL: Awake and alert. PSYCHIATRIC: cooperative. LINE: No evidence of infection Assessment and Plan - Plan Impression Pneumonia, possibly with aspiration component - came from home Large fungating/ulcerated mass L side of face Possible sepsis due to PNA Recommendation requesting hospice, denia wantas to Rx PNA Likely aspiration - swallowing eval recommended pureed diet and honey thckened liquid Levaquin and Flagyl x 7 days Spoke with RN Spoke with Deidra HAUSER (Palliative med)
--- NOTE | 2018-09-18 13:48 | P.DS ---
Date of admission: 09/15/18 22:58 Primary care physician: UNKNOWN Brief History from admission: 83 year old male who comes in due to AMS and hypoxia. Per EMS, patient was at home and found to be hypoxic with an oxygen saturation in the 70s. EMS placed him on CPAP and gave him 2 duonebs. He was hypotensive with EMS and was given a liter of i.v. fluids. Patient's says he has had the basal cell carcinoma to his face for the past year. She says that it suddenly got bigger. She says [facility] advised that he go to [facility], but he does not want to go because it is too far away. says that he has been hallucinating, seeing things that are not actually there. DS: Medications - Discharge Medications Prescriptions: levofloxacin 500 mg PO DAILY 7 Days #7 tab metronidazole 500 mg PO Q8HR 7 Days tab DS: Summary Hospital Course: severe sepsis aspiration pneumonia/ acute hypoxemic respiratory failure Possibly infected basal cell carcinoma possible UTI Nasal cannula to maintain saturations greater than or equal to 92% Incentive spirometry while awake Albuterol/ipratropium aerosols every 4 hours with albuterol aerosols every 2 hours as needed dyspnea continue IV antibiotics ID consult appreciated. CT pulmonary angiogram revealed no central pulmonary embolus. Bilateral lower lobe infiltrates. Dementia disorder NOS Continue memantine 7 mg twice daily and donepezil 10 mg daily for dementia Acetaminophen 650 mg by mouth p.o. every 6 hours as needed fever/pain 1-10 Hydromorphone 1 mg IV every 4 hours as needed breakthrough pain CT brain revealed no acute intracranial findings. Large 10 cm left mass of her face. Sinus tachycardia Lactic acidosis resolved Essential hypertension Home medications are lisinopril 20 mg daily and hydrochlorothiazide 25 mg daily and amlodipine 5 mg daily. Lisinopril and hydrochlorothiazide currently on hold. As needed labetalol/hydralazine for hypertension Leukocytosis Basal cell carcinoma of the face MRI face with large left face tumor with evidence of deep soft tissue extension - Time Spent with Patient Total time spent providing and/or coordinating discharge services: Less than 30 minutes - Quality: VTE Deep Vein Thrombosis/Pulmonary Embolism Present on Admission: No Exam Vital signs: Vital Signs 09/17/18 14:00 09/17/18 15:00 09/17/18 15:01 Temperature Pulse Rate 55 L 64 49 L Respiratory Rate 52 H 52 H 58 H Blood Pressure 138/71 130/72 Pulse Oximetry 94 L 96 96 09/17/18 15:33 09/17/18 16:00 09/17/18 18:00 Temperature 97.6 F Pulse Rate 83 78 86 Respiratory Rate 24 Blood Pressure Pulse Oximetry 09/17/18 19:21 09/17/18 20:00 09/17/18 22:00 Temperature 98.5 F Pulse Rate 58 L 62 86 Respiratory Rate 20 18 Blood Pressure 131/57 L Pulse Oximetry 94 L 95 09/17/18 23:16 09/18/18 00:00 09/18/18 02:00 Temperature 98.3 F Pulse Rate 75 87 76 Respiratory Rate 20 18 Blood Pressure 138/70 Pulse Oximetry 95 09/18/18 03:29 09/18/18 04:00 09/18/18 06:00 Temperature 98.1 F Pulse Rate 57 L 76 78 Respiratory Rate 20 18 Blood Pressure 137/59 L Pulse Oximetry 95 09/18/18 08:00 09/18/18 09:00 09/18/18 10:00 Temperature 97.6 F Pulse Rate 53 L 67 60 Respiratory Rate 34 H 150 H 113 H Blood Pressure 142/66 H 144/65 H 133/83 Pulse Oximetry 95 92 L 09/18/18 10:23 09/18/18 11:00 Temperature Pulse Rate 57 L 67 Respiratory Rate 24 107 H Blood Pressure 143/94 H Pulse Oximetry 93 L Intake & Output 09/17/18 09/18/18 09/18/18 18:59 06:59 18:59 Intake Total 2150 / 2150 522.5 / 522.5 800 / 800 Output Total 775 / 775 600 / 600 Balance 1375 / 1375 -77.5 / -77.5 800 / 800 Weight 72.1 kg Intake: IV 2100 / 2100 462.5 / 462.5 800 / 800 D5W/1/2 NS Inj 1,000 ML @ 65 1000 / 1000 700 / 700 mls/hr IV.CONT .[id number] [facility] Rx# :[id number] Zosyn 4.5 GM Premix 4.5 gm In 100 / 100 200 / 200 100 / 100 100 ml @ 200 mls/hr IV.SIG Q6H [facility] Rx#:[id number] Vancomycin Inj 1,250 MG In NS 262.5 / 262.5 Inj 250 ML @ 250 mls/hr IV.SIG Q24H [facility] Rx#:[id number] Oral 50 / 50 60 / 60 Output: Urine Amount (Catheter) 775 / 775 600 / 600 Indwelling Urethral Catheter 775 / 775 600 / 600 Other: Date of Last Bowel Movement 09/17/18 09/16/18 09/18/18 # Bowel Movements 1 1 # Incontinent Bowel Movements 1 - Constitutional no acute distress - Routine HEENT Exam Comments: large mass on the left face. - Routine Respiratory Exam Present: CTA bilaterally - Routine Cardiovascular Exam Present: RRR - Routine Abdominal Exam Present: soft - Routine Extremities Exam Comments: no pedal edema. - Routine Neurological Exam Present: alert Results Procedures completed during hospitalization: none Labs on day of discharge: Labs from last 24 hours 09/18/18 09/18/18 09/18/18 12:29 05:00 03:16 WBC 14.1 H RBC 3.28 L Hgb 10.0 L Hct 29.7 L MCV 90.7 MCH 30.5 MCHC 33.7 RDW 12.8 Plt Count 244 MPV 7.2 Neut % (Auto) 85.9 H Lymph % (Auto) 6.8 L Barren % (Auto) 5.4 Eos % (Auto) 1.6 Baso % (Auto) 0.3 Neut # (Auto) 12.1 H Lymph # (Auto) 1.0 [place]ren # (Auto) 0.8 Eos # (Auto) 0.2 Baso # (Auto) 0.0 WBC Differential . Differential Comment Auto diff final POC Glucose 96 123 H Vancomycin Trough 09/17/18 09/17/18 09/17/18 23:52 23:45 17:15 WBC RBC Hgb Hct MCV MCH MCHC RDW Plt Count MPV Neut % (Auto) Lymph % (Auto) [place] % (Auto) Eos % (Auto) Baso % (Auto) Neut # (Auto) Lymph # (Auto) [place] # (Auto) Eos # (Auto) Baso # (Auto) WBC Differential Differential Comment POC Glucose 121 H 183 H Vancomycin Trough 10.1 H Preliminary micro results at discharge 09/15/18 19:48 Aerobic Blood Culture - Preliminary Blood - Peripheral No growth in 3 days Anaerobic Blood Culture - Preliminary No growth in 3 days 09/15/18 19:43 Aerobic Blood Culture - Preliminary Blood - Peripheral No growth in 3 days Anaerobic Blood Culture - Preliminary No growth in 3 days - Impressions ITS Impressions Chest X-Ray 09/15/18 19:43 CONCLUSION: Probable infiltrate in the lower lateral left lung. Chest CTA 09/15/18 20:35 CONCLUSION: 1. The study is negative for central pulmonary embolism. 2. Bilateral lower lobe consolidative infiltrates. Head CT 09/15/18 20:35 CONCLUSION: 1. No acute findings in the brain. 2. Large irregular margin soft tissue mass in the left face measuring in excess of 10 cm. . Face MRI 09/16/18 00:00 CONCLUSION: 1. 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 Discharge Plan - Discharge Disposition Patient Disposition: 51 Hospice/Med Facility - Discharge Condition Condition: Stable - Discharge Order Discharge Orders: Discharge Order (Routine); Ordered 09/18/18 Ordered By: Nancy Everett - Physicians Team Primary Care Provider: UNKNOWN, Attending Provider: Nancy Everett Other Providers: Chanelle Cameron MD ; Helen Vallejo MD
--- NOTE | 2018-09-18 13:50 | P.CONPAL ---
Consult Service: Palliative Care Requesting Physician: Nancy Everett Reason for Consult: a. To assist with evaluation and management of symptoms including: agitation, restlessness, altered mental status. b. To assist medical decision maker(s) with: better understanding of current medical conditions; weighing benefits/burdens of medical treatment options; making medical treatment decisions. Primary Care Provider: UNKNOWN History of Present Illness History of Present Illness: Mr. Bullock is an 83 year old male with past medical history of basal cell carcinoma on left face for the past year that is now an infiltrating fungating mass. Patient presented to [facility] emergency department on 09/15/18 with altered mental status and respiratory distress. * Chest x-ray: probable infiltrate lower left lung. * Chest CTA - negative for pulmonary embolism, bilateral LL consolidative infiltrates. * Head CT - large irregular margin soft tissue mass in left face measuring in excess of 10cm. * EKG - sinus tach rate 100, no ST elevation, large artifact. * Face MRI - large infiltrating mass in the left face measuring 11cm, mass extends into the subcutaneous tissues of the left maxillary region back into the pinna of the left ear, evidence of deep soft tissue invasion around the mandibular condyle and ramus with enhancing tissue surrounding the ramus and on the deep side of the mandible, and enhancing tissue seen within the external acoustic canal, invasion into the parotid gland. Patient was admitted with pneumonia, altered mental status, hallucinations and enlarging irregular face mass. Infectious disease was consulted. Discussed with Dr. Cameron who indicates patient can go to hospice with oral Levaquin and Flagyl. He has been tolerating oxygen via [place]. Patient remains lethargic, opens eyes intermittently. He nods yes when discussing hospice services and care center placement. He does not interact with me more than this. . Function/Cognitive Trajectory: Patient has had enlarging face mass over the past year. He did not want to pursue aggressive treatments. Review of Systems ROS per report unobtainable due to mental status Constitutional: Reports anorexia, Reports daytime sleepiness, Reports fatigue, Reports lack of energy Ears, Nose, Mouth, and Throat: Reports facial pain, Reports nasal congestion Cardiovascular: Reports shortness of breath Respiratory: Reports shortness of breath Psychiatric: Reports behavioral changes, Reports change in appetite, Reports confusion PMFSH - History History Provided By: Makeup Artist / EMT - Medical History Medical History: Medical History (Last Updated 09/18/18 @ 16:48 by Юлия Edwards) Basal cell carcinoma - Surgical History Surgical History: Surgical History (Last Updated 09/18/18 @ 16:49 by Юлия Edwards) Status post biopsy of skin - Family History Family History: Family History (Last Updated 09/18/18 @ 16:49 by Юлия Edwards) Other Parents - Social History I have reviewed the patient's Social History: Yes - Tobacco History Second Hand Smoke Exposure: No Smoking Status: Former smoker - Alcohol History How Often Do You Have a Drink Containing Alcohol: Never - Substance Use History Substance History: No History of Abuse - Travel History Recent Travel in the [place] Within the Last 8 Weeks: No Recent Travel Out of the Country Within the Last 8 Weeks: No - Immunization History Tetanus Immunization: Unsure Medications and Allergies Active Medications: Active Medications Acetaminophen (Tylenol) 650 mg PO Q6H PRN PRN Reason: PAIN 1-5 AND/OR FEVER >101F Al Hydroxide/Mg Hydroxide (Milk Of Danyelle Liq) 30 ml PO Q12H PRN PRN Reason: Mild Constipation Albuterol (Duoneb Neb (Maren)) 1 ampul NEB Q4HR NEB MAREN Last Admin: 09/18/18 10:24 Dose: Not Given Albuterol (Albuterol Neb (Prn)) 2.5 mg NEB Q2HR NEB PRN PRN Reason: DYSPNEA Amlodipine Besylate (Norvasc) 10 mg PO DAILY [facility] Bisacodyl (Dulcolax Supp) 10 mg RECTAL DAILY PRN PRN Reason: SEVERE CONSITIPATION Chlorhexidine Gluconate (Chlorhexidine 2% Cloth) 3 pack TOPICAL DAILY@0400 [facility] Stop: 09/21/18 03:59 Last Admin: 09/18/18 03:03 Dose: 3 pack Chlorhexidine Gluconate (Chlorhexidine 2% Cloth) 3 pack TOPICAL DAILY@0400 PRN PRN Reason: Extra cloth needed Stop: 09/21/18 03:59 Dextrose (D50w Vial) 50 ml IV.PUSH UNSCH PRN PRN Reason: PER HYPOGLYCEMIA PROTOCOL Last Admin: 09/16/18 17:32 Dose: 50 ml Donepezil HCl (Aricept) 10 mg PO DAILY [facility] Last Admin: 09/18/18 08:02 Dose: 10 mg Glucagon (Glucagon Inj) 1 mg OTHER PRN PRN PRN Reason: for Hypoglycemia Protocol Heparin Sodium (Porcine) (Heparin Inj) 5,000 units SQ Q8HR [facility] Last Admin: 09/18/18 05:10 Dose: 5,000 units Hydralazine HCl (Apresoline Inj) 10 mg IV.PUSH Q1H PRN PRN Reason: Sbp>165, Dbp>90 Hydromorphone HCl (Dilaudid Pf Inj) 1 mg IV.PUSH Q4H PRN PRN Reason: PAIN SCALE 6 TO 10 Last Admin: 09/17/18 02:14 Dose: 1 mg Sodium Chloride (Ns Inj) 1,000 mls @ 0 mls/hr IV.SIG .Q0M [facility] Last Infusion: 09/17/18 07:00 Dose: Infused Magnesium Sulfate 4 gm/ Sodium (Chloride) 100 mls @ 50 mls/hr IV.SIG UNSCH PRN PRN Reason: For Magnesium 0.9 - 1.1 mg/dL Magnesium Sulfate 2 gm/ Sodium (Chloride) 100 mls @ 50 mls/hr IV.SIG UNSCH PRN PRN Reason: For Magnesium 1.2 - 1.6 mg/dL Potassium Chloride (Kcl 40 Meq Premix Inj) 40 meq in 100 mls @ 25 mls/hr IV.SIG Q2H PRN PRN Reason: For Potassium 2.8 - 3.2 mEq/L Potassium Chloride (Kcl 20 Meq Premix Inj) 20 meq in 100 mls @ 50 mls/hr IV.SIG Q2H PRN PRN Reason: For Potassium 3.3 - 3.5 mEq/L Potassium Chloride (Kcl 40 Meq Premix Inj) 40 meq in 100 mls @ 25 mls/hr IV.SIG UNSCH PRN PRN Reason: For Potassium 3.3 - 3.5 mEq/L Potassium Phosphate 30 mmol/ (Sodium Chloride) 260 mls @ 42 mls/hr IV.SIG UNSCH PRN PRN Reason: SEE LABEL COMMENTS Sodium Phosphate 30 mmol/ (Sodium Chloride) 260 mls @ 42 mls/hr IV.SIG UNSCH PRN PRN Reason: For Phosphorus < 2.5 mg/dL Potassium Chloride (Kcl 20 Meq Premix Inj) 20 meq in 100 mls @ 50 mls/hr IV.SIG Q2H PRN PRN Reason: For Potassium 2.8 - 3.2 mEq/L Insulin Aspart (Novolog Insulin Correctional Sugar Inj) 0 unit SQ Q6HR [facility]; Protocol Last Admin: 09/18/18 12:46 Dose: Not Given Labetalol HCl (Trandate Inj) 10 mg IV.PUSH Q1H PRN PRN Reason: Sbp>165, Dbp>90, Hr>65 Lactulose (Lactulose Liq) 30 ml PO DAILY PRN PRN Reason: SEVERE CONSITIPATION Levofloxacin (Levaquin) 500 mg PO DAILY [facility] Stop: 09/25/18 11:44 Last Admin: 09/18/18 12:51 Dose: 500 mg Magnesium Oxide (Mag-Ox) 800 mg PO UNSCH PRN PRN Reason: For Magnesium 1.2 - 1.6 mg/dL Metronidazole (Flagyl) 500 mg PO Q8HR [facility] Stop: 09/25/18 13:59 Nitroglycerin (Nitro-Bid 2% Oint) 2 inch TOPICAL Q6H PRN PRN Reason: Sbp>165, Dbp>90 Ondansetron HCl (Zofran Inj) 4 mg IV.PUSH Q6H PRN PRN Reason: NAUSEA OR VOMITING Pantoprazole Sodium (Protonix Inj) 40 mg IV.PUSH Q24H [facility] Last Admin: 09/17/18 16:10 Dose: 40 mg Pt Own Memantine 7 (Mg Xr Tablet) 1 each PO BID [facility] Potassium Bicarb/Potassium Chloride (K-Lyte Cl Eff) 50 meq PO UNSCH PRN PRN Reason: For Potassium 3.3 - 3.5 mEq/L Last Admin: 09/17/18 19:38 Dose: 50 meq Potassium Phosphate (K-Phos Original) 2,000 mg PO Q4H PRN PRN Reason: Phosphorus Less Than 2.5 mg/dL Potassium Phosphate (K-Phos Original) 2,000 mg PO UNSCH PRN PRN Reason: SEE LABEL COMMENTS Senna/Docusate Sodium (Ashlyn-Colace) 1 tab PO BID [facility] Last Admin: 09/18/18 08:02 Dose: 1 tab Sennosides (Senokot) 17.2 mg PO Q12H PRN PRN Reason: Moderate Constipation Sodium Chloride (Ns Flush) 2 ml IV.FLUSH BID [facility] Last Admin: 09/18/18 08:02 Dose: 2 ml Sodium Chloride (Ns Flush) 2 ml IV.FLUSH PRN PRN PRN Reason: FLUSH AFTER USING IV ACCESS Temazepam (Restoril) 15 mg PO HS PRN PRN Reason: INSOMNIA Last Admin: 09/17/18 21:55 Dose: 15 mg Allergies Allergy/AdvReac Type Severity Reaction Status Date / Time No Known Allergies Allergy Verified 09/15/18 19:43 Home Medications Medication Instructions Recorded Confirmed Type amlodipine 5 mg PO DAILY 09/15/18 09/15/18 History donepezil 10 mg PO DAILY 09/15/18 09/15/18 History memantine 7 mg PO BID 09/15/18 09/15/18 History Advance Directives Living Will: No Healthcare Surrogate: No Health Care Surrogate Name and Number: HCP: , Katherine Bullock:[phone] Power of Director Digital Advertising: No Today's verbally stated goals: Nods yes to hospice and comfort care. Family/friends goals: and son support patient decision for comfort care with hospice support. Ethical and Legal Issues: No written advanced directives. According to [place] statutes, healthcare proxy decision making falls to the patient's spouse Katherine. Physical Exam Vital Signs: Vital Signs - 24 hr 09/17/18 14:00 09/17/18 15:00 09/17/18 15:01 Temperature Pulse Rate 55 L 64 49 L Respiratory Rate 52 H 52 H 58 H Blood Pressure 138/71 130/72 Pulse Oximetry 94 L 96 96 09/17/18 15:33 09/17/18 16:00 09/17/18 18:00 Temperature 97.6 F Pulse Rate 83 78 86 Respiratory Rate 24 Blood Pressure Pulse Oximetry 09/17/18 19:21 09/17/18 20:00 09/17/18 22:00 Temperature 98.5 F Pulse Rate 58 L 62 86 Respiratory Rate 20 18 Blood Pressure 131/57 L Pulse Oximetry 94 L 95 09/17/18 23:16 09/18/18 00:00 09/18/18 02:00 Temperature 98.3 F Pulse Rate 75 87 76 Respiratory Rate 20 18 Blood Pressure 138/70 Pulse Oximetry 95 09/18/18 03:29 09/18/18 04:00 09/18/18 06:00 Temperature 98.1 F Pulse Rate 57 L 76 78 Respiratory Rate 20 18 Blood Pressure 137/59 L Pulse Oximetry 95 09/18/18 08:00 09/18/18 09:00 09/18/18 10:00 Temperature 97.6 F Pulse Rate 53 L 67 60 Respiratory Rate 34 H 150 H 113 H Blood Pressure 142/66 H 144/65 H 133/83 Pulse Oximetry 95 92 L 09/18/18 10:23 09/18/18 11:00 Temperature Pulse Rate 57 L 67 Respiratory Rate 24 107 H Blood Pressure 143/94 H Pulse Oximetry 93 L I&O: Intake & Output 09/16/18 09/17/18 09/18/18 09/19/18 06:59 06:59 06:59 06:59 Intake Total 1100 / 1100 3736.5 / 3736.5 2672.5 / 2672.5 800 / 800 Output Total 475 / 475 2100 / 2100 1375 / 1375 Balance 625 / 625 1636.5 / 1636.5 1297.5 / 1297.5 800 / 800 Weight 72.1 kg 72.4 kg 72.1 kg Physical Exam: CONSTITUTIONAL/GENERAL: This is an adequately nourished patient, in no apparent distress. SKIN: Large left facial mass, dark fungating mass measures about 11cm, dressing loosely covering site. Ecchymoses on upper extremities. Skin temperature appropriate. Not diaphoretic. EYES: Pupils equal and round and reactive. ENT: Hearing grossly normal. NECK: Trachea midline. CARDIOVASCULAR: Regular rate and rhythm without murmurs. RESPIRATORY/CHEST: Scattered coarse breath sounds, diminished bilaterally. GASTROINTESTINAL: Abdomen soft, non-tender, nondistended. No guarding. Bowel sounds hypoactive. GENITOURINARY: Without palpable bladder distension. Ross in place. MUSCULOSKELETAL: Extremities without edema. No mottling or clubbing. LYMPHATICS: Not examined. NEUROLOGICAL: Awakens briefly, nods yes to hospice and comfort otherwise does not really partipcate in conversations. Restless. Moves all extremities. Appears confused. PSYCHIATRIC: Lethargic, restless, picking at sheets. Diagnostic Tests Laboratory: Laboratory Results - last 72 hr 09/15/18 09/15/18 09/15/18 19:47 19:47 19:47 WBC 17.1 H RBC 3.55 L Hgb 10.7 L Hct 32.7 L MCV 92.0 MCH 30.0 MCHC 32.6 RDW 12.7 Plt Count 269 MPV 7.4 Neut % (Auto) 86.9 H Lymph % (Auto) 5.8 L Hopkins % (Auto) 6.1 Eos % (Auto) 0.8 Baso % (Auto) 0.4 Neut # (Auto) 14.8 H Lymph # (Auto) 1.0 Hopkins # (Auto) 1.0 H Eos # (Auto) 0.1 Baso # (Auto) 0.1 WBC Differential . Differential Comment Auto diff final PT 11.7 H INR 1.2 APTT 23.8 Sodium 143 Potassium 3.9 Chloride 107 Carbon Dioxide 29.4 Anion Gap 7 BUN 43 H Creatinine 1.21 Estimated GFR 52 L POC Glucose Random Glucose 85 Lactic Acid Calcium 11.3 H Phosphorus Magnesium 2.0 Total Bilirubin 0.8 AST 22 ALT 24 Alkaline Phosphatase 62 Total Creatine Kinase 112 CK-MB (CK-2) 2.6 Troponin I Less than 0.02 L Total Protein 5.5 L Albumin 2.3 L TSH Urine Color Urine Clarity Urine pH Ur Specific [place] Urine Protein Urine Glucose (UA) Urine Ketones Urine Occult Blood Urine Nitrate Urine Bilirubin Urine Urobilinogen Ur Leukocyte Esterase Urine RBC Urine WBC Urine WBC Clumps Ur Squamous Epith Cells Uric Acid Crystals Urine Bacteria Urine Mucus Urine Yeast Micro UA Comment Ur Microscopic Review Urine Culture Comments Nasal Screen MRSA (PCR) Vancomycin Trough 09/15/18 09/15/18 09/15/18 19:47 19:55 23:35 WBC RBC Hgb Hct MCV MCH MCHC RDW Plt Count MPV Neut % (Auto) Lymph % (Auto) Hopkins % (Auto) Eos % (Auto) Baso % (Auto) Neut # (Auto) Lymph # (Auto) Hopkins # (Auto) Eos # (Auto) Baso # (Auto) WBC Differential Differential Comment PT INR APTT Sodium Potassium Chloride Carbon Dioxide Anion Gap BUN Creatinine Estimated GFR POC Glucose Random Glucose Lactic Acid 2.7 H 2.0 Calcium Phosphorus Magnesium Total Bilirubin AST ALT Alkaline Phosphatase Total Creatine Kinase CK-MB (CK-2) Troponin I Total Protein Albumin TSH Urine Color Yellow Urine Clarity Hazy H Urine pH 6.0 Ur Specific [place] 1.015 Urine Protein Negative Urine Glucose (UA) Negative Urine Ketones Negative Urine Occult Blood Negative Urine Nitrate Negative Urine Bilirubin Negative Urine Urobilinogen 2.0 H Ur Leukocyte Esterase Negative Urine RBC Urine WBC 2 Urine WBC Clumps Ur Squamous Epith Cells Uric Acid Crystals Urine Bacteria Urine Mucus Few H Urine Yeast Micro UA Comment Cath-culture not ind Ur Microscopic Review Not Reportable Urine Culture Comments Cath-cult not ind Nasal Screen MRSA (PCR) Vancomycin Trough 09/15/18 09/16/18 09/16/18 23:57 01:45 04:50 WBC 17.8 H RBC 2.99 L Hgb 9.4 L Hct 27.5 L MCV 91.9 MCH 31.3 MCHC 34.1 RDW 13.0 Plt Count 220 MPV 6.7 L Neut % (Auto) 91.6 H Lymph % (Auto) 3.3 L Hopkins % (Auto) 4.3 Eos % (Auto) 0.2 Baso % (Auto) 0.6 Neut # (Auto) 16.3 H Lymph # (Auto) 0.6 L Hopkins # (Auto) 0.8 Eos # (Auto) 0.0 Baso # (Auto) 0.1 WBC Differential . Differential Comment Auto diff final PT INR APTT Sodium Potassium Chloride Carbon Dioxide Anion Gap BUN Creatinine Estimated GFR POC Glucose Random Glucose Lactic Acid Calcium Phosphorus Magnesium Total Bilirubin AST ALT Alkaline Phosphatase Total Creatine Kinase CK-MB (CK-2) Troponin I Less than 0.02 L Total Protein Albumin TSH Urine Color Urine Clarity Urine pH Ur Specific [place] Urine Protein Urine Glucose (UA) Urine Ketones Urine Occult Blood Urine Nitrate Urine Bilirubin Urine Urobilinogen Ur Leukocyte Esterase Urine RBC Urine WBC Urine WBC Clumps Ur Squamous Epith Cells Uric Acid Crystals Urine Bacteria Urine Mucus Urine Yeast Micro UA Comment Ur Microscopic Review Urine Culture Comments Nasal Screen MRSA (PCR) Not detected Vancomycin Trough 09/16/18 09/16/18 09/16/18 04:50 04:50 04:50 WBC RBC Hgb Hct MCV MCH MCHC RDW Plt Count MPV Neut % (Auto) Lymph % (Auto) Hopkins % (Auto) Eos % (Auto) Baso % (Auto) Neut # (Auto) Lymph # (Auto) Hopkins # (Auto) Eos # (Auto) Baso # (Auto) WBC Differential Differential Comment PT 12.6 H INR 1.2 APTT 40.6 H D Sodium 144 Potassium 3.5 Chloride 111 H Carbon Dioxide 25.4 Anion Gap 8 BUN 40 H Creatinine 1.15 Estimated GFR 61 L POC Glucose Random Glucose 83 Lactic Acid 1.6 Calcium 9.9 D Phosphorus 2.7 Magnesium 2.0 Total Bilirubin 1.2 H AST 23 ALT 21 Alkaline Phosphatase 47 Total Creatine Kinase CK-MB (CK-2) Troponin I Less than 0.02 L Total Protein 4.6 L D Albumin 1.8 L TSH Urine Color Urine Clarity Urine pH Ur Specific [place] Urine Protein Urine Glucose (UA) Urine Ketones Urine Occult Blood Urine Nitrate Urine Bilirubin Urine Urobilinogen Ur Leukocyte Esterase Urine RBC Urine WBC Urine WBC Clumps Ur Squamous Epith Cells Uric Acid Crystals Urine Bacteria Urine Mucus Urine Yeast Micro UA Comment Ur Microscopic Review Urine Culture Comments Nasal Screen MRSA (PCR) Vancomycin Trough 09/16/18 09/16/18 09/16/18 11:35 12:12 17:28 WBC RBC Hgb Hct MCV MCH MCHC RDW Plt Count MPV Neut % (Auto) Lymph % (Auto) Hopkins % (Auto) Eos % (Auto) Baso % (Auto) Neut # (Auto) Lymph # (Auto) Hopkins # (Auto) Eos # (Auto) Baso # (Auto) WBC Differential Differential Comment PT INR APTT Sodium Potassium Chloride Carbon Dioxide Anion Gap BUN Creatinine Estimated GFR POC Glucose 83 64 L Random Glucose Lactic Acid Calcium Phosphorus Magnesium Total Bilirubin AST ALT Alkaline Phosphatase Total Creatine Kinase CK-MB (CK-2) Troponin I Total Protein Albumin TSH Urine Color Yellow Urine Clarity Cloudy H Urine pH 5.0 Ur Specific [place] 1.027 Urine Protein 30 H Urine Glucose (UA) Negative Urine Ketones Negative Urine Occult Blood Large H Urine Nitrate Negative Urine Bilirubin Negative Urine Urobilinogen Less than 2 Ur Leukocyte Esterase Large H Urine RBC Urine WBC 71 H Urine WBC Clumps Occasional H Ur Squamous Epith Cells 1 Uric Acid Crystals Occasional H Urine Bacteria Rare H Urine Mucus Few H Urine Yeast Occasional H Micro UA Comment Cath-culture ind Ur Microscopic Review Not Reportable Urine Culture Comments Cath-cult indicated Nasal Screen MRSA (PCR) Vancomycin Trough 09/16/18 09/17/18 09/17/18 17:39 00:58 03:51 WBC 17.0 H RBC 3.14 L Hgb 9.7 L Hct 28.9 L MCV 92.1 MCH 31.0 MCHC 33.7 RDW 13.1 Plt Count 215 MPV 6.7 L Neut % (Auto) 88.2 H Lymph % (Auto) 5.0 L Hopkins % (Auto) 5.6 Eos % (Auto) 0.7 Baso % (Auto) 0.5 Neut # (Auto) 15.0 H Lymph # (Auto) 0.9 L Hopkins # (Auto) 1.0 H Eos # (Auto) 0.1 Baso # (Auto) 0.1 WBC Differential . Differential Comment Auto diff final PT INR APTT Sodium Potassium Chloride Carbon Dioxide Anion Gap BUN Creatinine Estimated GFR POC Glucose 202 H 98 Random Glucose Lactic Acid Calcium Phosphorus Magnesium Total Bilirubin AST ALT Alkaline Phosphatase Total Creatine Kinase CK-MB (CK-2) Troponin I Total Protein Albumin TSH Urine Color Urine Clarity Urine pH Ur Specific [place] Urine Protein Urine Glucose (UA) Urine Ketones Urine Occult Blood Urine Nitrate Urine Bilirubin Urine Urobilinogen Ur Leukocyte Esterase Urine RBC Urine WBC Urine WBC Clumps Ur Squamous Epith Cells Uric Acid Crystals Urine Bacteria Urine Mucus Urine Yeast Micro UA Comment Ur Microscopic Review Urine Culture Comments Nasal Screen MRSA (PCR) Vancomycin Trough 09/17/18 09/17/18 09/17/18 03:51 03:51 03:51 WBC RBC Hgb Hct MCV MCH MCHC RDW Plt Count MPV Neut % (Auto) Lymph % (Auto) Hopkins % (Auto) Eos % (Auto) Baso % (Auto) Neut # (Auto) Lymph # (Auto) Hopkins # (Auto) Eos # (Auto) Baso # (Auto) WBC Differential Differential Comment PT 12.0 H INR 1.2 APTT 32.0 H D Sodium 145 Potassium 3.3 L Chloride 113 H Carbon Dioxide 25.5 Anion Gap 7 BUN 31 H Creatinine 0.99 Estimated GFR 72 L POC Glucose Random Glucose 90 Lactic Acid 1.2 Calcium 10.0 Phosphorus 2.4 L Magnesium 2.0 Total Bilirubin 0.9 AST 29 ALT 23 Alkaline Phosphatase 45 Total Creatine Kinase CK-MB (CK-2) Troponin I Total Protein 4.8 L Albumin 1.8 L TSH Urine Color Urine Clarity Urine pH Ur Specific [place] Urine Protein Urine Glucose (UA) Urine Ketones Urine Occult Blood Urine Nitrate Urine Bilirubin Urine Urobilinogen Ur Leukocyte Esterase Urine RBC Urine WBC Urine WBC Clumps Ur Squamous Epith Cells Uric Acid Crystals Urine Bacteria Urine Mucus Urine Yeast Micro UA Comment Ur Microscopic Review Urine Culture Comments Nasal Screen MRSA (PCR) Vancomycin Trough 09/17/18 09/17/18 09/17/18 03:51 05:30 12:50 WBC RBC Hgb Hct MCV MCH MCHC RDW Plt Count MPV Neut % (Auto) Lymph % (Auto) Hopkins % (Auto) Eos % (Auto) Baso % (Auto) Neut # (Auto) Lymph # (Auto) Hopkins # (Auto) Eos # (Auto) Baso # (Auto) WBC Differential Differential Comment PT INR APTT Sodium Potassium Chloride Carbon Dioxide Anion Gap BUN Creatinine Estimated GFR POC Glucose 118 H 98 Random Glucose Lactic Acid Calcium Phosphorus Magnesium Total Bilirubin AST ALT Alkaline Phosphatase Total Creatine Kinase CK-MB (CK-2) Troponin I Total Protein Albumin TSH 1.570 Urine Color Urine Clarity Urine pH Ur Specific [place] Urine Protein Urine Glucose (UA) Urine Ketones Urine Occult Blood Urine Nitrate Urine Bilirubin Urine Urobilinogen Ur Leukocyte Esterase Urine RBC Urine WBC Urine WBC Clumps Ur Squamous Epith Cells Uric Acid Crystals Urine Bacteria Urine Mucus Urine Yeast Micro UA Comment Ur Microscopic Review Urine Culture Comments Nasal Screen MRSA (PCR) Vancomycin Trough 09/17/18 09/17/18 09/17/18 17:15 23:45 23:52 WBC RBC Hgb Hct MCV MCH MCHC RDW Plt Count MPV Neut % (Auto) Lymph % (Auto) Hopkins % (Auto) Eos % (Auto) Baso % (Auto) Neut # (Auto) Lymph # (Auto) Hopkins # (Auto) Eos # (Auto) Baso # (Auto) WBC Differential Differential Comment PT INR APTT Sodium Potassium Chloride Carbon Dioxide Anion Gap BUN Creatinine Estimated GFR POC Glucose 183 H 121 H Random Glucose Lactic Acid Calcium Phosphorus Magnesium Total Bilirubin AST ALT Alkaline Phosphatase Total Creatine Kinase CK-MB (CK-2) Troponin I Total Protein Albumin TSH Urine Color Urine Clarity Urine pH Ur Specific [place] Urine Protein Urine Glucose (UA) Urine Ketones Urine Occult Blood Urine Nitrate Urine Bilirubin Urine Urobilinogen Ur Leukocyte Esterase Urine RBC Urine WBC Urine WBC Clumps Ur Squamous Epith Cells Uric Acid Crystals Urine Bacteria Urine Mucus Urine Yeast Micro UA Comment Ur Microscopic Review Urine Culture Comments Nasal Screen MRSA (PCR) Vancomycin Trough 10.1 H 09/18/18 09/18/18 09/18/18 03:16 05:00 12:29 WBC 14.1 H RBC 3.28 L Hgb 10.0 L Hct 29.7 L MCV 90.7 MCH 30.5 MCHC 33.7 RDW 12.8 Plt Count 244 MPV 7.2 Neut % (Auto) 85.9 H Lymph % (Auto) 6.8 L Hopkins % (Auto) 5.4 Eos % (Auto) 1.6 Baso % (Auto) 0.3 Neut # (Auto) 12.1 H Lymph # (Auto) 1.0 Hopkins # (Auto) 0.8 Eos # (Auto) 0.2 Baso # (Auto) 0.0 WBC Differential . Differential Comment Auto diff final PT INR APTT Sodium Potassium Chloride Carbon Dioxide Anion Gap BUN Creatinine Estimated GFR POC Glucose 123 H 96 Random Glucose Lactic Acid Calcium Phosphorus Magnesium Total Bilirubin AST ALT Alkaline Phosphatase Total Creatine Kinase CK-MB (CK-2) Troponin I Total Protein Albumin TSH Urine Color Urine Clarity Urine pH Ur Specific [place] Urine Protein Urine Glucose (UA) Urine Ketones Urine Occult Blood Urine Nitrate Urine Bilirubin Urine Urobilinogen Ur Leukocyte Esterase Urine RBC Urine WBC Urine WBC Clumps Ur Squamous Epith Cells Uric Acid Crystals Urine Bacteria Urine Mucus Urine Yeast Micro UA Comment Ur Microscopic Review Urine Culture Comments Nasal Screen MRSA (PCR) Vancomycin Trough Result Diagrams: 09/18/18 03:16 09/17/18 03:51 Microbiology: Microbiology 09/16/18 11:35 Gram Stain - Final Sputum - Nasal Tracheal Aspirate Sputum Culture - Final Heavy growth normal respiratory noemi 09/15/18 19:48 Aerobic Blood Culture - Preliminary Blood - Peripheral No growth in 3 days Anaerobic Blood Culture - Preliminary No growth in 3 days 09/15/18 19:43 Aerobic Blood Culture - Preliminary Blood - Peripheral No growth in 3 days Anaerobic Blood Culture - Preliminary No growth in 3 days 09/16/18 11:35 Urine Culture - Final Catheterized Urine No growth in 48 hours 09/16/18 11:35 Streptococcus pneumoniae Antigen (M - Final Urine - Catheterized Urine Presumptive negative for streptococcus pneumoniae antigen, suggesting no current or recent infection. Infection due to Streptococcus pneumoniae cannot be ruled out since the antigen present in the sample may be below the detection limit of the test. 09/16/18 11:35 Legionella Antigen - Final Urine - Catheterized Urine Presumptive negative for Legionella pneumophila serogroup 1 antigen in urine, suggesting no recent or recurrent infection. Infection due to Legionella cannot be ruled out since other serogroups and species may cause disease, antigen may not be present in urine in early infection, and the level of antigen present in the urine may be below the detection limit of the test. 09/16/18 11:35 Influenza Types A,B Antigen - Final Nasal Wash Negative for FLU A and B antigen Infection due to influenza A or B cannot be ruled out since the antigen present in the sample may be below the detection limit of the test. Imaging: Chest X-Ray 09/15/18 19:43 CONCLUSION: Probable infiltrate in the lower lateral left lung. Chest CTA 09/15/18 20:35 CONCLUSION: 1. The study is negative for central pulmonary embolism. 2. Bilateral lower lobe consolidative infiltrates. Head CT 09/15/18 20:35 CONCLUSION: 1. No acute findings in the brain. 2. Large irregular margin soft tissue mass in the left face measuring in excess of 10 cm. . Face MRI 09/16/18 00:00 CONCLUSION: 1. 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 Patient/Family Conference Present at Family Conference: Met with and her son at bedside. Family Conference Time: 60 Family Conference Location: Bedside Issues Discussed: * Palliative care role, purpose, approach * Additional medical, psychosocial, and spiritual history * Patients general health, functional status, and cognitive changes in the months leading up to the current hospitalization * Patient/family understanding of the current medical problems * Patient/family understanding of prognosis * Patients goals of care as best understood from advance directives and/or conversations and/or values * Current medical treatment options and benefits/burdens of those options * Likely scenarios comparing ongoing aggressive care with a transition to comfort measures only * Questions answered to the best of my ability * Palliative care contact information provided Assessment and Plan - Symptom Scale (1) Restlessness and agitation 0-10 Scale: Unable to quantify (2) Altered mental status 0-10 Scale: Unable to quantify Pertinent Non-Medical Issues: Psychosocial: to second Katherine for 24 years. Children live [place] of [place]. Spiritual: Unknown. Legal: Ethical issues impacting care: Important Contacts: * Katherine Bullock, : [phone] Prognosis: PPS 20 prognosis likely days to weeks. Code Status: No Code DNR Plan: * No written advance directives. According to [place] Statutes, health care proxy decision making falls to his . * NO CODE * Family has elected transition to comfort measures with hospice support. Will need POCC placement for management of restlessness, agitation, altered mental status and high risk for hemorrhage, I called to reserve a bed. * Hospice consulted. * Discussed with Dr. Velasco and Dr. Cameron and nursing staff. * SYMPTOMS: agitation and restlessness: likely secondary to tumor, infection. Recommend Haldol and Lorazepam PRN. AMS; due to tumor burden and infection. Comfort measures. * Palliative care number provided. Appreciation Thank you for the opportunity to participate in the care of Leopoldo Bullock. Attestation Attestation: To help prompt me to consider important information that might be impacting today's encounter and assessment, information from prior notes written by myself or my colleagues may have been "brought forward" into today's note. My signature on this note, however, is an attestation that I personally performed the exam, history, and/or decision-making noted today, and, unless otherwise indicated, the interactions with patient, family, and staff as well as the review of records all occurred today. I also attest that the listed assessment and stated plan reflect my best clinical judgment today based on the combination of historical information, prior notes, and today's exam/ interactions. When time spent is documented, it refers only to time spent today by the signer, or if indicated, combined time spent today by collaborating physician/nurse practitioner.
[2018-09-18] MEDS ORDERED: metroNIDAZOLE 500 MG Tablet PO SCH (14:00)
[2018-09-18 15:28] VITALS: BP 141/66; PULSE 84; RESP 38; O2SAT 96
== END 2018-09-18 15:25 | disposition hospice, inpatient (51) ==
LOC: NEPE 19:25 → EDBD 22:58 → NEDA 22:58 → HIMC 09-16 01:00
PROVIDERS: ADMIT Internal Medicine; ATTEND Internal Medicine